=== PATIENT | female | born 1965 | race Caucasian/White ===

== ENCOUNTER 2020-10-11 13:47 | Emergency (ER) | payer OTHER ==
[~2020-10-11] VITALS: Ht 162.6 cm; Wt 104.3 kg
--- NOTE | ~2020-10-11 | EMS ---
[address] [address] EMS Patient Care Report Name: JAVED GERARDO Room #: REG NITISH Garcia#: [id number] Admission: 10/11/20 Attend Phys: Discharge: Date of : 67 Report #: [id number] THIS REPORT FOR: //name// Report Transmitted: 10/11/2020 14:15 EMS Care Summary [facility] MED-ACT Incident [id number] @ 10/11/2020 13:11 Incident Location [address] [place] [id number] Patient JAVED GERARDO Female, 55 Years 1965 Patient Address [address] [place] [id number] Patient History Hypertension (HTN),Hyperlipidemia,Hyperparathyroidism,Cardiomyopathy, Patient Allergies Codeine, Patient Medications Losartan, Levothyroxine, Olanzapine, Hydralazine, Potassium, Pantoprazole, Chief Complaint Cellulitis Disposition Transported No Lights/[place] Dispatch Reason Psychiatric Problem/Abnormal Behavior/Suicide Attempt Transported To [facility] Narrative [id number] dispatched to an assisted living facility for a C3 behavioral. Pt was found seated in a common area with staff and Q33 present. [address] [address] EMS Patient Care Report Name: JAVED GERARDO Room #: REG Ann.#: [id number] Admission: 10/11/20 Attend Phys: Discharge: Date of : 67 Report #: [id number] Staff stated that EMS transport was requested by the pt. They stated that the pt was having a "manic episode" and refusing to take her medication. Pt stated that she has not been taking her medication because it was prescribed by an ER physician and not her PCP. Pt has not been combative or had any suicidal ideations. Staff stated that the pt believes that her potassium is low and is "leaking from her legs" pt has a hx of cellulitis and edema was noted to both lower legs. Pt stated that she feels like the staff at the facility does not have the capability to properly care for her medical problems. This was also given as a reason she has not taken her medication. Pt was alert and oriented x 3 and pleasantly conversational during transport. Pt showed no signs of aggression towards any of the responders. Pt stated that her PCP is in [place] and that she is not from here. she stated that her brother was the one who checked her in to the facility to "relax". Pt was assisted to the cot and transported non emergent to [facility] per her request. Initial Vitals @PTAP: 95,R: 14,BP: 181/131,Pain: 0/10,GCS: 15,SpO2: 97,Revised Trauma: 12, @13:40P: 92,R: 14,BP: 154/92,GCS: 15,SpO2: 99,Revised Trauma: 12, @13:30P: 94,R: 14,BP: 163/87,GCS: 15,Temp: 97.8F,SpO2: 98,Revised Trauma: 12, Assessments @13:36MENTAL:Person Oriented,Time Oriented,Place Oriented,Event Oriented,SKIN:HEENT:Head/Face: No Abnormalities,Neck/Airway: No Abnormalities,LUNG SOUNDS:General: No Abnormalities,ABDOMEN:General: No Abnormalities,PELVIS//GI:No Abnormalities,EXTREMITIES:Left Leg: Edema,Right Leg: Edema,Left Arm: No Abnormalities,Right Arm: No Abnormalities,PULSE:NEURO:No Abnormalities, Impression Cellulitis Procedures @PTASurgical Mask on PatientResponse: Unchanged Timeline 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,Surgical Mask on Patient,Response: Unchanged 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,BP: 181/131 M,PULSE: 95,RR: 14 R,SPO2: 97 Ox,ETCO2: ,BG: ,PAIN: 0,GCS: 15, 13:09,Call Received 13:09,Psap Call 13:11,Dispatched 13:11,En Route 13:19,On Scene 13:23,At Patient 13:27,Depart Scene 13:30,BP: 163/87 M,PULSE: 94,RR: 14 R,SPO2: 98 Ox,ETCO2: ,BG: ,PAIN: ,GCS: 15, 13:40,BP: 154/92 M,PULSE: 92,RR: 14 R,SPO2: 99 Ox,ETCO2: ,BG: ,PAIN: ,GCS: 15, [address] [address] EMS Patient Care Report Name: JAVED GERARDO Room #: REG [facility].#: [id number] Admission: 10/11/20 Attend Phys: Discharge: Date of : 67 Report #: [id number] 13:44,At Destination 14:05,Call Closed Disclaimer v1.1 Copyright 2020 [employer] This EMS Care Summary contains data elements from the applicable legal record (which may be displayed differently). It is designed to provide pertinent information for the following purposes: continuity of care, clinical quality, and state data reporting. The complete legal record is available to ED staff and administrators of the receiving hospital in [employer]'s Patient Tracker. All data is provided "as is."
[~2020-10-11 13:47] MED LIST: KEFLEX500 MG PO; POTASSIUM20 PO; PRINIVIL20 MG PO; SYNTHROID112 MCG PO
[2020-10-11 14:03] LABS: HEMATOCRIT 27.7 % (37.0-47.0); HEMOGLOBIN 9.3 gm/dL (12.0-15.0); MCH 30.5 pg (26.0-34.0); MCHC 33.7 g/dL (28.0-37.0); MCV 90.7 fL (80.0-100.0); PLATELET COUNT 309 thou/uL (150-400); RBC 3.06 mil/uL (4.20-5.00); RDW 20.5 % (10.5-14.5); WBC 11.5 thou/uL (4.0-11.0)
[2020-10-11 14:06] LABS: ANION GAP 10 mmol/L (7-16); BUN 43 mg/dL (7-18); CALCIUM 7.8 mg/dL (8.5-10.1); CHLORIDE 106 mmol/L (98-107); CO2 30 mmol/L (21-32); CREATININE 1.3 mg/dL (0.6-1.0); GLUCOSE 142 mg/dL (74-106); POTASSIUM 3.9 mmol/L (3.5-5.1); SODIUM 146 mmol/L (136-145)
[2020-10-11 14:16] LABS: ALBUMIN 3.1 g/dL (3.4-5.0); SGOT 8 U/L (15-37); SGPT 12 U/L (14-59); TOTAL BILIRUBIN 0.3 mg/dL (0.2-1.0); TOTAL PROTEIN 6.7 g/dL (6.4-8.2); TROPONIN-I <0.06 ng/mL (<0.06)
[2020-10-11] MEDS ORDERED: CARVEDILOL12.5 MG PO (15:27)
[2020-10-11] MEDS ORDERED: VITAMIN B-121000 MC2 PO (15:28)
[2020-10-11] MEDS ORDERED: COZAAR 50 MG TA50 M1 PO (15:28)
[2020-10-11] MEDS ORDERED: DEPAKOTE ER500 M1 PO (15:28)
[2020-10-11] MEDS ORDERED: HYDRALAZINE 2525 MG PO (15:29)
[2020-10-11] MEDS ORDERED: IRON325 M1 PO (15:29)
[2020-10-11] MEDS ORDERED: LASIX 40 MG TAB40 MG PO (15:29)
[2020-10-11 15:30] LABS: URINE BILIRUBIN NEGATIVE (Negative); URINE BLOOD NEGATIVE (Negative); URINE CLARITY CLEAR; URINE COLOR YELLOW; URINE GLUCOSE-RANDOM* NEGATIVE (Negative); URINE KETONES NEGATIVE (Negative); URINE NITRITE-REFLEX NEGATIVE (Negative); URINE PROTEIN (DIPSTICK) NEGATIVE (Negative); URINE SPECIFIC GRAVITY 1.015 (1.005-1.035); URINE UROBILINOGEN 0.2 E.U./dl (0.2-1.0)
[2020-10-11] MEDS ORDERED: MELATONIN3 M1 PO (15:30)
[2020-10-11] MEDS ORDERED: PROTONIX40 M3 PO (15:30)
[2020-10-11] MEDS ORDERED: SPIRONOLACTONE25 MG PO (15:31)
[2020-10-11] MEDS ORDERED: TYLENOL325 MG PO (15:31)
[2020-10-11 15:35] LABS: URINE LEUKOCYTES-REFLEX 1+ (Negative)
[2020-10-11 15:36] LABS: BACTERIA-REFLEX 1-9 Few /HPF (None Seen); CASTS None Seen /LPF (None Seen); CRYSTALS None Seen /LPF (None Seen); SQUAMOUS 0-3 Few /LPF (0-3); URINE RBC None Seen /HPF (NONE SEEN); URINE WBC-REFLEX 6-15 Few /HPF (0-5)
[2020-10-11 15:41] LABS: AMP/METHAMP Negative (Negative); BARBITURATES Negative (Negative); BENZODIAZEPINES Negative (Negative); COCAINE Negative (Negative); METHADONE Negative (Negative); OPIATES Negative (Negative); PCP Negative (Negative)
--- NOTE | 2020-10-11 16:39 | EKG ---
[address] [place] [address] ELECTROCARDIOGRAM REPORT Name: JAVED [facility]ERARDO [id number] Admission: 10/11/20 Attend Phys: Discharge: Date of : 67 Report #: [id number] [facility] ED Test Date: 2020-10-11 Test Time: 14:22:32 Pat Name: JAVED GERARDO Department: Room: Gender: F Senior Market Intelligence Consultant: CLAYTON : 1965 Requested By: Freeman Casillas Order Number: [id number] MD: Alvarado Carmichael Measurements Intervals [place] Rate: 87 P: 39 WI: 141 QRS: 4 QRSD: 88 T: 31 QT: 395 QTc: 476 Interpretive Statements Sinus rhythm Borderline prolonged QT interval No previous ECG available for comparison Electronically Signed On 10-11-2020 16:39:08 CDT by Alvarado Carmichael [email or web address] <ELECTRONICALLY SIGNED> By: Alvarado Carmichael MD, [facility] 10/11/20 1639 1422 1422 Alvarado Carmichael MD, FACC /EPI
[2020-10-11 19:16] VITALS: BP 159/89
== END 2020-10-11 19:19 ==
LOC: ER 13:47
PROVIDERS: Nurse Practitioner
DX: F91.9 Conduct disorder, unspecified (principal); Z90.710 Acquired absence of both cervix and uterus; Z79.899 Other long term (current) drug therapy; Z88.8 Allergy status to other drugs, medicaments and biological substances; Z20.822 Contact with and (suspected) exposure to COVID-19

== ENCOUNTER 2020-10-11 20:13 | Inpatient (IN) | payer OTHER ==
[~2020-10-11] VITALS: Ht 152.4 cm; Wt 109.5 kg
[~2020-10-11 20:13] MED LIST changes: +CARVEDILOL12.5 MG PO; +COZAAR 50 MG TA50 M1 PO; +DEPAKOTE ER500 M1 PO; +HYDRALAZINE 2525 MG PO; +IRON325 M1 PO; +LASIX 40 MG TAB40 MG PO; +MELATONIN3 M1 PO; +PROTONIX40 M3 PO; +SPIRONOLACTONE25 MG PO; +TYLENOL325 MG PO; +VITAMIN B-121000 MC2 PO
[2020-10-11 20:35] VITALS: BP 156/82
--- NOTE | 2020-10-12 02:34 | NUR ---
Arrived on the [facility] floor @ 19:15, accompanied by x2 ED staff from the [facility]. Transferred from stretcher to bed 520B. Report from Leona WHITE in the ED @ 21:05. 55 y.o. Female with allergy to Hydrocodone. Arrived in the ED transported by EMS from [facility]. EMS reports her throwing things at the staff and ems drivers when loading her for transport. DX: Dementia with Behavioral disturbances. Brought to the ED for throwing things at staff in the half-way and at the EMS drivers, DX of bipolar/manic and refusing meds. As per Leona WHITE, the patient will be signing herself in volantarily. She eventually signed herself in, but voiced discontet with the prospects of being a patient in the hospital for anything more than treating the cellulitis on her lower extremities. Reports pain bilat to lower extremities. Denies SI, reports HI toward ex- with whom she completed a final divorce decree in 2019. She justifies this hatred based on erin's greed being a frustration to herself and that is why she would consider bodily harm to him. Uses a walker for ambulation and x1 stand by assist. Denies falls previous to admission. Toilet riser provided for difficulty standing from sitting position. VS 157/89 79 18 97.4 98% weight 239.3 HRRR, Lungs CTA bilat, with some diminished inspiration noted to lower silva. ABD N x 4Q, Reports BM today. No bumps or scars noted to scalp. Under breast pink noted, especially the right. Thighs pink on the medial thigh(s). Above the knee redness noted at about 6" above the knee. Right leg from the knee to ankle is dark red in color with a multitide of pustules noted. the right leg knee to ankle is pink with pustules noted. The right foot has +2 edema and is pink on the top of the feet. The left foot has =2 edema and is pink on the top of the foot. Paatient reports that she would like leg pumps to wear at night, and that they give her relief for 24 hours. Reports she wears compression socks up to the knee. Heels are dry but the skin is intact. Left arm has 2 burgandy color areas and right arm has a burgancy color spot on the skin that the patient calls Spontaneous bruises. Patient reports that she is independent with teeth brushing and skin care. Agreed to allow staff to be on stand by for showering and amabulation. Wears glasses, which she reports she brought with her to the ED, Denies hearing aide or dentures. Reports dental work with an open filling that the dentist started and she needs another appointment to complete. Presents with an angry volatile affect, becomming calmer as the intake continues. Patient denies any history of mental health issues . Denies any current mental health issues, including deny Bipolar. Refused Melatonin 3mg and retired to bed when asked to for the purpose of completing head to toe assessment, then was willing to stay in bed, reports that she will be awake all night, that she slept during the day, and does not require sleep at [facility].
[2020-10-12 04:13] VITALS: BP 156/82
[2020-10-12 09:28] VITALS: BP 162/103
[2020-10-12 09:40] VITALS: BP 162/103
--- NOTE | 2020-10-12 10:28 | NUR ---
ASSUMED CARE AT 0700 THIS MORNING. [facility] SHE IS STATING SHE IS ONLY HER FOR HER CELLULITIS AND DOES NOT NEED TO BE HERE WITH THESE MENTALLY ILL PAIENTS. HER LOWER LEGS ARE EDEMATOUS, REDDENED AND DRY. SHE HAS CELLULITIS AND IS ON A ANTIBIOTIC FOR THIS. SHE IS PUSHY WITH STAFF WANTING STAFF TO GIVE HER FOOD (BEFORE BREAKFAST), CLOTHING, AND WANTS TO KNOW WHEN SHE CAN LEAVE HERE. SHE WAS VERY INQUISITIVE ABOUT THE CELLULITIS WANT TO KNOW WHAT ALL CAN/WILL BE DONE FOR HER HERE. SHE WANTS SCD'S, ANTIBIOTICS, AND BEDREST. SHE DENIES OTHER REASONS FOR BEING HERE. SHE DID SIGN THE CONSENTS. SHE REFUSES TO ALLOW HER FAMILY TO KNOW SHE IS HERE. THE FACILITY CALLED AND WANTED INTORMATION FOR THE PATIENT'S FAMILY. THEY WERE INFORMED THAT THE PT. DOES NOT GIVE PERMISSION FOR INFORMATION TO BE GIVEN TO THE FAMILY. THERE IS NO DPOA PAPERS ON THE CHART. THE FACILTY SHE CAME FROM STATED THEY DO NOT HAVE DPOA PAPERS ON HER. THE FAMILY IS STATING THAT THEY DO. THEY WERE INFORMED TO BRING A COPY TO THE ER AND THE STAFF WILL OBTAIN THE COPY IF INDEED THIS IS CORRECT. NO FURTHER INFORMATION OBTAINED AT THIS WRITING FROM THE FAMILY OR FACILITY. WILL CONTINUE TO MONITOR.
--- NOTE | 2020-10-12 17:23 | NUR ---
RAHAT attempted to reach pt's ex-, Nain Jernigan who is reportedly her DPOA. When RAHAT called, there was no answer and it was not clear that this was in fact Nain' phone so SW did not leave message. Nain' phone number is [phone]. SW team will remain available.
--- NOTE | 2020-10-12 17:32 | NUR ---
SW completed assessment and tx plan. SW team will remain available.
[2020-10-12 19:26] VITALS: BP 169/101
[2020-10-12 20:10] VITALS: BP 169/101
--- NOTE | 2020-10-13 02:27 | NUR ---
PATIENT WAS SLEEPING IN BED WHEN I CAME ON SHIFT AT 1900. SHE AWOKE EASILY AND IS A/0X3-4. SHE DENIES PAIN. SHE HAS CELLULITIS ON BLE'S AND THEY ARE ENLARGED WITH EDEMA X 3 NO WEEPING NOTED. SHE DENIES SI/HI/AVH. SHE AWOKE AND TOOK HER HS MEDS WHOLE WITH WATER. SHE WOKE FROM SLEEP AT AROUND 0115 AND CAME OUT TO THE DINING ROOM AND IS SITTING IN A CHAIR DRINKING WATER. SHE HAS BEEN CALM AND COOPERATIVE. WILL CONTINUE TO MONITOR.
--- NOTE | 2020-10-13 09:44 | NUR ---
Assess due to admit to [facility] for dementia and behavioral disturbances. Class III extreme obesity, heart failure, BLE cellulitis with weeping edema. On diuretics, and also receives B12 and ferrous sulfate supplementation. Eating 100% of meals. Heart healthy diet restriction is appropriate. Low nutrition risk
[2020-10-13 10:18] VITALS: BP 154/86
[2020-10-13 13:28] VITALS: BP 154/86
--- NOTE | 2020-10-13 15:44 | NUR ---
1345 RESUMMED CARE FROM OVERNIGHT SHIFT THIS AM, PATIENT IN DAY ROOM WATCHING TV. PATIENT ATE BREAKFAST AND WAS GIVING ME A HARD TIME ABOUT TAKING HER MEDICATION. DR PARIS HAD A TALK WITH PATIENT AND SHE THEN TOOK HER MEDICATION. PATIENT ALERT ORIENTED TIMES 3 SHE DENIES ANY SI/HI/AH/AH AT PRESENT. PATIENT TRIED TO BECOME A LITTLE HOSTILE WHILE DR PARIS WAS TALKING TO HER ABOUT HER TREATMENT. PATIENT FEELS SHE SHOULD NOT BE HERE PATIENTS ABDOMEN SOFT BOWEL SOUNDS PRESENT. PATIENTS LUNGS CLEAR PATIENT HAS CELLULITIS ON BOTH LOWER EXTREMITIES. PT CAME TO LOOK AT PATIENTS LEGS AND ASKED PATIENT IF SHE HAD COMPRESSION SOCKS OR THE MACHINE THAT HELPS COMPRESS THE LEGS. SHE STATED SHE DOES IT IS NOT MUCH FOR US TO DO PATIENT HAS HAD THIS CONDITION FOR 15 YEARS. WILL CONTINUE TO MONITOR PATIENT FOR SAFETY AND BEHAVIORS.
[2020-10-13 19:48] VITALS: BP 185/98
[2020-10-14] VITALS (7 sets, daily range): BP systolic 155–182; BP diastolic 82–96
--- NOTE | 2020-10-14 04:24 | NUR ---
UPON INITAL ASSESSMENT AT 1945 WAS NOTED TO BE SITTING IN DAYROOM AT TABLE COLORING-SITTING ALONE AWAY FROM PEERS AND STAFF-COMPLIENT WITH TAKING SCHEDULED HS MEDICATIONS AND ALLOWING PHYSICAL ASSESSMENT-DENIES ANY ACUTE PAIN OR ISSUES DURING PHYSICAL ASSESSMENT-REPORTS GOOD APPETITE-RECENT BM 4-25-NO COUCH-FEVER ETC. DOES FOCUS ON CELLULITIS OF LE AND WHEN QUESTIONED REPORTS THAT WHY SHE IS AT HOSPITAL-DENIES HAVING ANY MOOD ISSUES OR NEED FOR CURRENT MH TREATMENT. NOTED TO BECOME AGITATED WHEN TV IN DAYROOM TURNED OFF AT 2200 PER UNIT GUIDELINES AND ASKED TO TRY TO LAY DOWN TO SLEEP IN ROOM STATING "I DONT REALLY SLEEP AT NIGHT-I SLEPT TODAY" ONCE IN ROOM SAT AT SIDE OF BED FOR OVER AN HOUR REFUSES TO CHANGE IN NIGHT CLOTHES OR TURN LIGHTS OFF OR ELEVATE FEET ON BED TO PREVENT INCREASED LE SWELLING-INCREASINGLY ARGUMENTATIVE INSISTING THAT SHE CAN NOT GO TO BED UNTIL LEGS ARE "WRAPPED". THIS RN EXPLAINED THAT IT WAS NOTED THAT PT HAD ADVISED POSSIBLE LYMPHADEMA CONSULT TO FACILITATE LEGS BEING WRAPPED-ALSO EXPLAINED SAFTEY CONCERN WITH WRAPS ON PSYCHIATRIC FLOOR AND WOULD REQUIRE ADDITIONAL CONSIDERATION BY FIRE PREVENTION CAPTAIN AND ADMINISTRATION-REFUSING TO ACCEPT ANY EXPLANATIONS INSISTING THAT WE CALL IST AN AMBULANCE TO TAKE HER TO HOSPITAL-LATER STATING SHE WANTED THE POLICE CALLED-BECAUSE "I AM GOING TO PLACIDO ALL OF YOU FOR MALPRACTICE-I HAVE DONE IT BEFORE"SECURITY TO FLOOR TO SPEAK WITH PT-PROVIDE SUPPORT/REASSURANCE ABLE BUT CONTINUES TO ESCALATE INSISTING THAT HER BROTHER THE [facility] FLOOR INSTALLER AND MEDICAL LAB ASSISTANT BE CALLED TO REPORT "MEDICAL MALPRACTICE" AND STATES THIS NURSE IS "SLANDERING MY NAME BY SAYING I AM ON A PSYCHIATRIC UNIT" YELLING LOUDLY-THREATNING TO STAFF "IF YOU DON'T CALL SOMEONE RIGHT NOW I WILL HIT YOU WITH WHATEVER I CAN FIND" DR PARIS CONTACTED AND ORDERS RECEIVED FOR PO MEDS HOWEVER PT REFUSES ATIVAN 1.5MG GIVEN IM IN LEFT DELTOID ALONG WITH HALDOL 5MG IM. SAT IN DOORWAY OF ROOM INTENSLY STARING AT STAFF FOR APPROX 1 HOUR BEFORE GOING TO BED TO LAY DOWN.WILL CONTINUE TO MONITOR
--- NOTE | 2020-10-14 05:48 | NUR ---
AT APPROX 0500 BED EXIT ALARM SOUNDED-UPON STAFF ENTERING ROOM NOTED TO BE STANDING NEXT TO BED-OBSERVED TO LOOK UP AT STAFF AND FALL BACK ONTO EDGE OF MATTRESS AND SLIDE DOWN TO FLOOR LANDING ON BUTTOCKS. STATES SHE HAD TO "GET TO BATHROOM RIGHT AWAY CAN'T WAIT" WALKER AT SIDE OF BED OBTAINED AND ASSISTED BY STAFF TO BATHROOM-VS OBTAINED-PT DENIES PAIN-ABLE TO MOVE ALL EXTREMETIES WITH NOTED FULL ROM AND DENIES PAIN WITH MOVEMENT. NO NOTED BRUISES,ABRASIONS,REDNESS NOTED ON ASSESSMENT. DR PARIS CONTACTED.NURSING SUPERVISER CONTACTED-MESSAGE LEFT FOR BROTHER ADELA SHORE.
--- NOTE | 2020-10-14 07:17 | NUR ---
NO RETURN CALL RECEIVED FROM ADELA GERARDO WHO IS EX-SPOUSE AT [phone]-PAPERWORK SENT FROM [facility] LIST EMERGENCY CONTACT-PT ASKED TO CLARIFY IF HAD DPOA OR WHICH FAMILY MEMBER WAS HER CONTACT TO WHICH SHE STATES "I MAKE MY OWN DECISIONS-YOU DON'T HAVE MY PERMISSION TO CALL ANYONE I WILL PLACIDO YOU"
[2020-10-14 07:54] LABS: CALCIUM 8.2 mg/dL (8.5-10.1); CREATININE 1.3 mg/dL (0.6-1.0); POTASSIUM 4.1 mmol/L (3.5-5.1)
--- NOTE | 2020-10-14 12:27 | NUR ---
Alert and orientated to person, place but not to day or situation. States she is here d/t cellulitis. Denies SI/HI. Calm, cooperative and compliant, appreciative of assistance. Breath sounds clear. Reg HR auscultated. Color pink with brisk capillary refill and palpable peripheral pulses. Significant edema with multiple papules in lower extremities. Spoke with Dr. Serna, consulting with PT for assistance with edema. Incontinent of yellow urine and large green brown soft stool, required assistance with cleaning up. Ambulating with walker with regular, steady gait. Spent AM in day room participating in groups and coloring. No s/o distress.
--- NOTE | 2020-10-14 16:37 | NUR ---
@7310 RAHAT recieved a PC call from Heather Mason [phone], Pt's sister. Heather informed the Pt called her mother stating she was being discharged today. Heather expressed concern the Pt could leave AMA. RAHAT provided education on DPOA enactment vs 96 hr hold. RAHAT explained that Pt was not discharging today and if Pt insisited on leaving the DPOA would be contacted concerning the matter. RAHAT provided eduction on placement process. Heather stated [facility] would not accept the Pt back due to behaviors. So the Pt will need a new placement. RAHAT encouraged Heather to go to the medicare website to get a listing of facilities and provide SW with a few they family is intrested in. RAHAT will continue to follow RAHAT will continue to follow.
[2020-10-15 00:20] VITALS: BP 161/91
--- NOTE | 2020-10-15 00:26 | NUR ---
Assumed care on 10/14/20 @ 1900, in bed eyes closed, awakens to voice, cooperated with assessment, however very sleepy. Dressings on legs C/D/I. HRRR, Respirations shallow but even and unlabored. Compliant with medication administration, taking meds whole with thin water. Will continue to monitor for safety and comfort as per unit protocol.
[2020-10-15 13:15] VITALS: BP 162/108
--- NOTE | 2020-10-15 15:34 | NUR ---
PATIENT HAS BEEN UP, AND OUT ON THE UNIT, AMBULATE WITH ASSIST OF ROLLER WALKER, GAIT SLIGHTLY UNSTEADY. PATIENT TOOK ALL MEDICATION WHOLE WITHOUT DIFFICULTY, SHE IS EATING MEALS, AND DRINKING FLUID WELL. PATIENT DENIES SUICIDAL/HOMICIDAL IDEATION, SHE DENIES DEPRESSION/ANXIETY, SHE DENIES HAVING PHYSICAL PAIN. WRAP IN PLACE TO SAVANNA LOWER EXTREMITY. PATIENT IS CONTINENT OF BOWEL/BLADDER, HAD SOFT MEDIUM BOWEL MOVEMENT TODAY. AFFECT IS FLAT/BLUNTED, MOOD IS DEPRESSED. PATIENT PARTICIPATING IN GROUP THERAPY. NO SIGN OF ACUTE DISTRESS NOTED AT THIS TIME, WILL MONITOR FOR SAFETY.
[2020-10-15 18:53] VITALS: BP 181/98
--- NOTE | 2020-10-16 02:31 | NUR ---
PT CARE ASSUMED WITH PT IN THE ACTIVITY ROOM WATCHING TV.PT IS AMBULATE WITH WALKER.WRAP ON BLE IN PLACE.PT TAKE MEDICATION WHOLE WITH NO DIFFICULTIES.PT CONFUSE AND FORGETFUL.PT ASKED FOR MEDICATIONS AFTER SHE HAD TAKEN THEM EARLIER.PT WAS ASSISTED TO THE BATHROOM AND WAS ASSIST TO BED AT ABOUT 01:00.PT GIVEN TYLENOL FOR PAIN ON SAVANNA LE.WILL CONTINUE TO MONITOR
[2020-10-16 07:15] VITALS: BP 188/111
--- NOTE | 2020-10-16 12:00 | NUR ---
Alert and orientated X 4. Talking about divorce and finances r/t exhusband this AM. Calm, cooperative and compliant. Denies SI/HI. Ambulates with walker with regular, steady gait. Breath sounds clear. Reg HR auscultated. Color pink with brisk capillary refill and palpable peripheral pulses. +4 pitting edema in lower extremities with multiple palpules, tubigrips in place. Continent of yellow urine. Active bowel sounds over large, soft, rounded abdomen. Incontinent of brown formed stool. Currently sitting at table eating lunch with peers. No s/o distress.
[2020-10-16 16:00] VITALS: BP 170/102
[2020-10-16 16:50] VITALS: BP 173/85
--- NOTE | 2020-10-16 17:57 | NUR ---
Lymphadema therapist called and stated that she will redress cellulitis in AM.
[2020-10-16 19:34] VITALS: BP 187/100
[2020-10-16 23:00] VITALS: BP 160/90
--- NOTE | 2020-10-17 05:17 | NUR ---
SITTING IN DAYROOM COLORING ON INITIAL APPROACH THIS PM AT APPROX 2000-DYSPHORIC MOOD AND CONTINUES TO STATE SHE HOPE SHE GETS TO LEAVE SOON SHE "DOES NOT BELOMG HERE" TYLENOL 650MG GIVEN PO PRN PER REQUEST AT 2100 ALONG WITH SCHEDULED HS MEDS FOR LE PAIN RATED A 6 ON 1-10 SCALE-DID AMBULATE TO ROOM AND LAYED DOWN ON BED FOR 1-2 HOURS BEFORE GETTING BACK UP REQUESTING WOUND CARE TO COME AND PUT ON HER "WRAPS" SHE FEELS SWELLING IS "GETTING WORSE-I CALLED MY SISTER IN- LAW TO LET HER KNOW" LE ASSESSED AND APPEAR DISCOLORED REDDISH/PURPLE-HARD TENSE NON-PITTING EDEMA TO FEET ANKLES AND LOWER CALVES BILAT.-IS NOT WARM TO TOUCH-EDEMA APPEARS UNCHANGED FROM ON PREVIOUS SHIFTS. TUBIGRIP OBTAINED FROM REHAB UNIT AND PLACED TO LE-PT APPRECIATIVE OF THIS AND HAS BEEN SITTING IN DAYRROM SINCE APPROX 0245 COLORING AND "MAKING LISTS" STATES "I NEVER SLEEP MORE THAN AN HOUR OR TWO AT NIGHT" REMAINS ON [place] RISK-USING ROLLER WALKER -COOPERATIVE WITH STAND BY SUPERVISION OF STAFF WHEN UP.
[2020-10-17 05:21] LABS: HEMATOCRIT 29.4 % (37.0-47.0); HEMOGLOBIN 9.3 gm/dL (12.0-15.0); MCH 28.6 pg (26.0-34.0); MCHC 31.7 g/dL (28.0-37.0); MCV 90.1 fL (80.0-100.0); RBC 3.26 mil/uL (4.20-5.00); RDW 20.8 % (10.5-14.5); WBC 11.7 thou/uL (4.0-11.0)
[2020-10-17 05:49] LABS: CREATININE 1.5 mg/dL (0.6-1.0); MAGNESIUM 2.6 mg/dL (1.8-2.4); POTASSIUM 4.1 mmol/L (3.5-5.1)
--- NOTE | 2020-10-17 08:09 | NUR ---
RT Progress Note- During Blanche's first week of admission, she has provided inconsistent participation in recreation therapy groups. Blanche remains present in the milieu throughout each day and often sits at dining table working on various tasks such as writing notes to her family or coloring in monthly calendars that she requests be printed for her. When not present in group it is often because she believes she needs to meet with a doctor or other member of the medical team, or needs to continue working on her paper projects. When present, Blanche is pleasant and enjoys interacting with other pts. She has not displayed agitation or aggression, but does require some reorientation occasionally. MOTOR ANALYST will continue to encourage participation.
--- NOTE | 2020-10-17 10:21 | NUR ---
TUBIGRIP IS TO STAY ON Pt EXCEPT WHILE BATHING. ONCE BATH IS OVER THAN PLEASE PUT THE TUBIGRIP BACK ON HER LEGS. THE WIDER PIECE GOES OVER THE CALF AND THE SMALLER ON GOES OVER THE FEET DOUBLE. THANK YOU FOR YOU ASSISTANCE
--- NOTE | 2020-10-17 12:08 | NUR ---
Nusrat with [facility] said that she can accept pt and wanted SW to email her a referral for pt. SW emailed a referral to [email or web address] a referral for pt. SW team will continue to follow pt during her stay on this unit.
--- NOTE | 2020-10-17 16:52 | NUR ---
PT ASSESSED AT START OF SHIFT. HAS BEEN CALM AND COOPERATIVE THROUGHOUT THE DAY. DID NOT SLEEP MUCH DURING THE NOC AND AFTER LUNCH COULD NOT STAY AWAKE SO SHE AGREEN TO LIE DOWN AND NAP FOR AN HOUR. BP MUCH IMPROVED.
[2020-10-17 19:28] VITALS: BP 156/80
--- NOTE | 2020-10-18 04:14 | NUR ---
PT WALKS AROUND USING WALKER. CONVERSATIONAL AND RESPECTFUL THRO THE SHIFT. TUBIGRIPS TO BLE.PT TOOK ALL HS NEDS WITHOUT ANY PROBLEMS. PT SLEPT UPTO AROUND 0300, SHE THEN WOKE UP AND IS NOW SLEEPING IN CHAIR AT THE DAY AREA.DRESSSINGS INTACT TO [facility].
[2020-10-18 09:15] VITALS: BP 157/90
--- NOTE | 2020-10-18 10:15 | NUR ---
Alert and orientated X4. Calm, cooperative and compliant, asking appropriate questions, has list of requests for toiletary items, provided. States pain in lower legs improved after tylenol. Denies SI/HI. Breath sounds clear. Reg HR auscultated. Color pale pink with brisk capillary refill and palpable peripheral pulses. Significant edema in lower extremities with tubi roll builder in place. Independent with voiding, yellow urine per toilet, dried stool around anus, assisted with cleaning. Slight redness under breasts, cleaned and nystatin cream applied. Multiple papules on lower extremities. Ambulating with regular, steady gait with walker. Currently attending group, no s/o distress.
[2020-10-18 19:54] VITALS: BP 155/86
--- NOTE | 2020-10-19 04:23 | NUR ---
10-18-20 CARE TRANSFERRED 1914 OBSERVED PT WALKING IN HALLWAY. LATER PT AAOX4, VSS, RR EVEN AND NONLABORED ON RA. PT REPORTS PAIN IN LE SAVANNA +2 EDEMA. PT DENIES SI/HI. PT PRESENTS PLEASANT, CALM AND COOPERATIVE THROUGHOUT NURSING ASSESMENT. DURING MEDICATION ADMIN PT HAD NO DIFFICULTIES. LATER ADJUSTED PT BED FOR COMFORT. ZERO S/S OF ACUTE DISTRESS NOTED, PT WILL CONTINUE TO BE MONITOR PER [facility] PROTOCOL.
[2020-10-19 04:53] LABS: HEMATOCRIT 28.6 % (37.0-47.0); HEMOGLOBIN 9.5 gm/dL (12.0-15.0); MCH 29.6 pg (26.0-34.0); MCHC 33.1 g/dL (28.0-37.0); MCV 89.5 fL (80.0-100.0); RBC 3.2 mil/uL (4.20-5.00); RDW 20.3 % (10.5-14.5); WBC 14.2 thou/uL (4.0-11.0)
[2020-10-19 04:56] LABS: CALCIUM 8.1 mg/dL (8.5-10.1); CREATININE 1.6 mg/dL (0.6-1.0); MAGNESIUM 2.6 mg/dL (1.8-2.4); POTASSIUM 3.5 mmol/L (3.5-5.1)
[2020-10-19 08:30] VITALS: BP 158/73
--- NOTE | 2020-10-19 08:45 | NUR ---
PT SITTING OUT IN DINING ROOM WITH OTHER PEERS. PT BEING SOCIAL. PT WORRIED ABOUT HER LE SWELLING SAYING THEY ARE BAD. PT HAS TUBEX SOCKS ON BILATERALY. PT STATED SHE HAS SOME PAIN TO LE OF 7 ON 1-10 SCALE. PT COMPLIENT WITH MEDS.
[2020-10-19 09:55] VITALS: BP 158/73
--- NOTE | 2020-10-19 10:39 | NUR ---
DR. WEST SEEN PT AND STATED THAT SHE DIDN'T HAVE CELLULITIS, BUT LYMPHEDEMA. HE EXPLAINED THAT HER KIDNEYS WAS NOT FUNCTIONING WELL AND SOME DIURETICS WAS ON HOLD. SHE DENIES ANY SOB. PT USES WALKER WHEN AMBULATING. PT ALSO HAS EDEMA IN LOWER EXT.
--- NOTE | 2020-10-19 14:33 | NUR ---
PT STATED HER LEGS ARE HURTING AND WANTING TO LAY DOWN. ADM TYLENOL 325MG 2 TABS PO PAIN TO LOWER LEGS OF 7 ON 1-10 SCALE. PT WENT TO BED AND LAID DOWN, FEET OF BED WAS ELEVATED FOR THE EDEMA.
[2020-10-19 15:16] VITALS: BP 141/84
--- NOTE | 2020-10-19 18:17 | NUR ---
PT WAS GOING TO BATHROOM. PT HAS AREA TO LEFT THIGH THAT IS DRAINING PURULENT DRAINAGE WITHOUT AN ODOR. OBTAINED A CULTURE OF WOUND THE WOUND AND A PIC FOR THE CHART. PT STATED IT WAS A BOIL THAT OPENED. NOTICE A REDDNESS AREA AROUND OPEN AREA. WILL CALL FOR CULTURE ORDER.
--- NOTE | 2020-10-19 18:47 | NUR ---
CALLED WOUND CARE CONSULT PER DR. WEST, ALSO ORDER FOR CULTURE AND STARTED A ABX.
[2020-10-19 19:20] VITALS: BP 144/68
--- NOTE | 2020-10-20 02:48 | NUR ---
ASSUMED CARE OF PT AT SHIFT CHANGE. PT IS AOX3-4 AND LETS NEEDS BE KNOWN. FALL PRECAUTION IN PLACE. PT IS UP WITH A WALKER. LYMPHEDEMA WRAPS IN PLACE. LEFT THIGH LESION DRESSING IS C/D/I. PT REPORTS SOME BLE PAIN. PT DENIED NAUSEA, SOA, SI OR HI. ASSESSMENT CHARTED. PT WAS ABLE TO GET COMFORTABLE AND SLEEP ONLY PART OF THE SHIFT. PT TOOK ALL HS MEDS WHOLE WITH WATER. VSS AND NO S/S OF ACUTE DISTRESS. WILL CONTINUE TO MONITOR.
[2020-10-20 09:14] VITALS: BP 152/83
--- NOTE | 2020-10-20 10:35 | NUR ---
Nutrition followup: Pt continues on [facility] unit, sleeping during visit. Spoke with nsg. Pt eating well, 75-100% of meals. No new weight however BMI class 3, extreme obesity. Heart healthy diet, Bilateral LE lymphedema on diuretics. Continues on B12 and ferrous sulfate supplementation. Remains low risk.
[2020-10-20 12:45] VITALS: BP 152/83
--- NOTE | 2020-10-20 12:54 | NUR ---
ASSUMED CARE AT 0700 THIS MORNING. SHE IS COOPERATIVE WITH THE STAFF. SHE TOOK HER MORNING MEDICATIONS WITHOUT PROBLEMS NOTED. SHE IS EATING WELL. SHE OFTEN ASKS FOR EXTRA FOOD AND ICE CREAM. STAFF DENIED THIS TO HER. SHE STATED, "DO I HAVE TO TALK TO THE DR?" SHE WAS INFORMED SHE WOULD. SHE ENDED THE CONVERSATION WITH THAT. WOUND TEAM HERE TO SEE PT. SHE HAS A WOUND ON THE FRONT MID THIGH TO LEFT LEG. THEY DRESSED THE WOUND. SHE ALSO HAS AN AREA TO HER REAR RIGHT LOWER LEG THAT THEY REDRESSED. THEY ENTERED ORDERS ON THIS. THE WOUND CARE TEAM REMOVED THE LYMPHADEMA WRAPS TO HER LOWER LEGS BILATERALLY. THEY WERE VERY TIGHT ON HER LEGS. THE TEAM STATED THEY HAD LARGER ONES THEY WOULD BRING BACK TO PUT ON HER LEGS LATER. WILL CONTINUE TO MONITOR.
[2020-10-20 20:03] VITALS: BP 164/85
--- NOTE | 2020-10-21 01:21 | NUR ---
SITTING IN DAYROOM VISITING WITH PEERS ON INITIAL ASSESSMENT THIS PM. STATES DAY WAS "GOOD" AND DESCRIBES MOOD "NOT BAD" FULL RANGE AFFECT-DENIES ACUTE ANXIETY,SI,SH,HI.COMPLIENT WITH TAKING SCHEDULED MEDICATIONS AND DENIES NEED FOR PRN'S. LUNGS CLEAR. BS ACTIVE AND REPORTS BM TODAY. DOES REPORT BEING UPSET THAT WRAPS FOR LE WERE REMOVED BY WOUND CARE EARLIER THIS SHIFT STATING "I HAD TO WAIT FOREVER TO GET THOSE AND THEY WERE JUST STARTING TO HELP. DOES STATE THAT TUBIGRIPS HELP WITH DISCOMFORT AND DECREASE HER PAININ LE. DID GO TO ROOM AND ATTEMPTED TO SLEEP ON BED WHEN ASKED ABOUT 2230 BUT UP OUT OF ROOM AT 2330 STATING "JUST CAN'T GET COMFORTABLE IN BED-I WOULD RATHER BE OUT HERE ' DID AGREE TO SIT IN GERICHAIR SO THAT LEGS COULD BE ELEVATED.WILL CONTINUE TO MONITOR.
[2020-10-21 05:16] LABS: HEMATOCRIT 27.4 % (37.0-47.0); HEMOGLOBIN 8.8 gm/dL (12.0-15.0); MCH 29.5 pg (26.0-34.0); MCHC 32.2 g/dL (28.0-37.0); MCV 91.9 fL (80.0-100.0); RBC 2.99 mil/uL (4.20-5.00); RDW 20.2 % (10.5-14.5); WBC 12.6 thou/uL (4.0-11.0)
[2020-10-21 05:36] LABS: CALCIUM 7.8 mg/dL (8.5-10.1); CREATININE 1.3 mg/dL (0.6-1.0); MAGNESIUM 2.6 mg/dL (1.8-2.4)
[2020-10-21 08:59] VITALS: BP 183/90
--- NOTE | 2020-10-21 11:34 | NUR ---
Alert and orientated X4. Goal is to be discharged. Calm, cooperative and compliant. Denies SI/HI. Breath sounds clear. Reg HR auscultated. Color pale pink with brisk capillary refill and palpable peripheral pulses. Edema increased significantly since 3 days ago. Independent with voiding. Dark green stool this AM, requiring assistance with wiping. Active bowel sounds over large, rounded abdomen. Lower extremities with multiple papules and erythema as well as edema. Abcess per R thigh with serosanguious drainage, cleaned with NS and dressed with gentamycin and foam drsg. 3 additional papules draining with scant amt serous drainage, cleaned with NS and dressed with border foam. [facility] PT and wound nurse here dressing lower legs and placing tubigrips. Cipro and KCL given per order.
[2020-10-21 17:00] VITALS: BP 168/98
--- NOTE | 2020-10-21 17:44 | NUR ---
RAHAT and Dr. Gomes participated in a phone call with Nain. Nain informed he has obtained temporary guardianship of the Pt. There are also two co-guardians. Nain stated he would email a copy of the orders to Dr. Gomes. RAHAT asked that communication be with one of the co-guardians moving forward, Nain was olay with this and provided the phone number to Lavelle Kilgore, co-guardian, . RAHAT also informed that Pt was ready d/c and Pt has an assessment with Cori Claros today at 1415. Nain was aware of the assessment time. A family meeting was set for 09/22/2020 @ 0900. RAHAT will continue to follow.
--- NOTE | 2020-10-21 17:52 | NUR ---
Pt completed an video assessment with Jenise Gaitan informed they will accept the Pt. Pt could move in as early as 10/23/2020
[2020-10-21 19:03] VITALS: BP 171/78
[2020-10-21 19:45] LABS: % SATURATION 17 % (20-39); IRON 43 ug/dL (50-170); TIBC 246 ug/dL (250-450)
[2020-10-21 20:01] LABS: FOLIC ACID 16.8 ng/mL (8.6-58.9)
--- NOTE | 2020-10-22 05:17 | NUR ---
10-21-20 CARE TRANSFERRED 0 OBSERVED PT SITTING IN DAY ROOM AT TABLE COLORING. LATER PT AAOX4, VSS, RR EVEN AND NONLABORED ON RA. PT DENIES PAIN AND SI/HI. PT PLEASANT, CALM AND COOPERATIVE. PT SAVANNA LE PITTING EDEMA +4. DURING MEDICATION ADMIN, PT REPORTED FEELING ANXIOUS THIS EVENING OVER LEAVING GOING TO ASSISTED LIVING. LATER PT REPORTED THAT HER DRESSING HAD FALLEN OFF, WOUND CARE WAS PROVIED PER HCP ORDERS, AND PT BED WAS ADJUSTED FOR COMFORT. ZERO S/S OF ACUTE DISTRESS NOTED, PT WILL CONTINUE TO BE MONITOR PER [facility] PROTOCOL.
[2020-10-22 08:00] VITALS: BP 179/89
[2020-10-22 10:05] VITALS: BP 159/95
--- NOTE | 2020-10-22 10:36 | HC ---
[facility] [place] [address] CONSULTATION Name: JAVED GERARDO Room #: 520B-B ADM IN M.R.#: [id number] Admission: 10/11/20 Attend Phys: Ej Serna DO Discharge: Date of : 67 Report #: [id number] THIS REPORT FOR: cc: Aden Gutiérrez MD, Christopher B. MD Althoff, Jeffrey R. MD ~ DOC #: [id number] Elmer Schreiber MD DATE OF SERVICE: 10/20/2020 CHIEF COMPLAINT: Abscess to the left thigh. HISTORY OF PRESENT ILLNESS: This is a 55-year-old female patient who presented to the Emergency Department for cellulitis. She was apparently having some aggressive behaviors and has been admitted to the Geriatric Psych Unit. I have been asked to see her with regard to an abscess on her left thigh that she states just began one to two days ago. She also noted some small ulcers to her right lateral ankle. PAST MEDICAL HISTORY: History of hypothyroidism, previous hysterectomy, diverticulitis, and history of recurring cellulitis. FAMILY HISTORY: Positive for depression in her mother. SOCIAL HISTORY: Positive for alcohol use, no tobacco use, or drug use. CURRENT MEDICATIONS: Include Keflex, potassium chloride, carvedilol, losartan, vitamin B12, Depakote, iron, hydralazine, Lasix, melatonin, pantoprazole, spironolactone, and Synthroid. ALLERGIES: HYDROCODONE. REVIEW OF SYSTEMS: CONSTITUTIONAL: The patient denies fever, chills or weight loss. NEUROLOGICAL: The patient denies focal weakness, numbness, tingling. EYES: The patient denies visual changes, redness, drainage. ENT: The patient denies earache, nasal drainage, or sore throat. CARDIOVASCULAR: The patient denies chest pain, palpitations, diaphoresis. PULMONARY: The patient denies cough or shortness of breath. GASTROINTESTINAL: Denies nausea, vomiting, diarrhea or abdominal pain. ORTHOPEDIC: The patient complains of pain and swelling involving her left anterior thigh. Other systems on A 14-point review of systems are negative. PHYSICAL EXAMINATION: [address] [address] CONSULTATION Name: JAVED GERARDO Room #: 520B-B [facility] IN [facility].#: [id number] Admission: 10/11/20 Attend Phys: Ej Serna DO Discharge: Date of : 67 Report #: [id number] VITAL SIGNS: The patient's vital signs at this time include temperature 36.3, pulse rate 70, respiratory rate 18, blood pressure 152/83. GENERAL: This is a chronically ill-appearing female patient who appears to be in no distress. HEAD: Normocephalic. Nose and throat are clear. NECK: Supple. LUNGS: Clear. ABDOMEN: Soft. Bowel sounds present. EXTREMITIES: Examination of the lower extremities demonstrates a small abscess or boil to the anterior left thigh. It is partially draining. The area has been prepped with Betadine and using a cotton tip applicator, unroofed with some purulent drainage, which the patient tolerated well and no additional fluctuance was noted. The patient's lower extremities demonstrate palpable distal pulses. She does have a few small venous ulcers to her right lateral lower leg and ankle region. NEUROLOGIC: The patient is alert and oriented. LABORATORY DATA: White blood cell count 14.2 with a hemoglobin of 9.5, hematocrit of 28.6. Sodium 147, potassium 3.5, chloride 107, CO2 of 30, BUN 54, creatinine 1.6. CLINICAL IMPRESSION: 1. A small abscess/boil to the left anterior thigh that is currently now draining. 2. Venous ulcers to the right lateral lower leg. 3. Frontotemporal dementia with behavioral issues. 4. Hypothyroidism. 5. History of pituitary microadenoma. 6. History of chronic diastolic heart failure. 7. Acute kidney injury on chronic kidney disease. 8. Hypertension. RECOMMENDATIONS: At this point in time, we will recommend gentamicin and bordered foam to the left anterior thigh area to be changed daily. Recommend a bordered foam to the open ulcers of the right ankle and Tubigrip stockings to both lower extremities, elevation of the legs as much as possible. I greatly appreciate being asked to see her in consultation. Elmer Schreiber MD [facility]/[address] [address] CONSULTATION Name: JAVED GERARDO Room #: 520B-B ADM IN M.R.#: [id number] Admission: 10/11/20 Attend Phys: Ej Serna, DO Discharge: Date of : 67 Report #: [id number] <ELECTRONICALLY SIGNED> By: Elmer Schreiber MD 10/22/20 1036 1611 0154 Elmer Schreiber MD /nt
--- NOTE | 2020-10-22 12:33 | NUR ---
PATIENT WAS IN BED ASLEEP WHEN CARE ASSUMED, AWAKEN FOR BREAKFAST. AMBULATE WITH ASSIST OF ROLLER WALKER, GAIT SLIGHTLY UNSTEADY. DRESSING CHANGED TO LEFT THIGH BOIL, CREAM APPLIED TO BLE. PATIENT TOOK ALL MEDICATION WHOLE WITHOUT DIFFICULTY, SHE IS EATING MEALS, AND DRINKING FLUID WELL. PATIENT DENIES SUICIDAL/HOMICIDAL IDEATION, SHE DENIES DEPRESSION/ANXIETY "AM A HAPPY PERSON". MOOD IS EUTHYMIC, AFFECT IS BRIGHT. PATIENT DENIES HAVING PHYSICAL PAIN. NO SIGN OF ACUTE DISTRESS NOTED AT THIS TIME, WILL MONITOR FOR SAFETY.
--- NOTE | 2020-10-22 14:56 | NUR ---
RAHAT and Dr. Gomes had a meeting with Lavelle Gillette, and Heather concerning nueropsy evaluation, diagnosis, and treatment. Dr. Gomes provided education on frontotemporal dementia. Pt has been accepted at [facility]. Pt will benefit from continued psychiatry. RAHAT will follow up if [facility] has a psychiatrist that rounds. Pt will d/c 10/23/2020 @1500. Pt will be transported via express transportation, confirmation #[id number]
[2020-10-22 19:03] VITALS: BP 135/80
--- NOTE | 2020-10-23 04:24 | NUR ---
10-22-20 CARE TRANSFERRED 1914 OBSERVED PT RESTING IN BED WITH EYES CLOSED AND FEET ELEVATED. LATER PT AAOX4, VSS, RR EVEN AND NONLABORED ON RA. PT DENIES SI/HI AND PAIN. PT DRESSING CLEAN, DRY AND INTACT. SAVANNA LE +4 EDEMA. PT PRESENTS PLEASANT, CALM AND COOPERATIVE. LATER OBSERVED PT WALKING IN HALLWAY WITH WALKER AND PT REPORTED THAT HER FEET AND LEGS ARE FEELING BETTER. LATER ASSISTED PT WITH ADJUSTMENT OF BED AND FEET ELEVATED. ZERO S/S OF ACUTE DISTRESS NOTED, PT WILL CONTINUE TO BE MONITOR PER [facility] PROTOCOL.
[2020-10-23 05:55] LABS: HEMOGLOBIN 8.5 gm/dL (12.0-15.0); MCH 29.1 pg (26.0-34.0); MCHC 31.6 g/dL (28.0-37.0); MCV 92.2 fL (80.0-100.0); RBC 2.93 mil/uL (4.20-5.00); RDW 20.9 % (10.5-14.5); WBC 11.7 thou/uL (4.0-11.0)
[2020-10-23 06:14] LABS: CALCIUM 7.6 mg/dL (8.5-10.1); CREATININE 1.3 mg/dL (0.6-1.0); POTASSIUM 3.4 mmol/L (3.5-5.1)
[2020-10-23 07:26] VITALS: BP 165/99
[2020-10-23 09:35] VITALS: BP 165/99
[2020-10-23] MEDS ORDERED: CIPROFLOXACIN500 M1 PO (12:27)
[2020-10-23] MEDS ORDERED: IRON325 PO (12:28)
[2020-10-23] MEDS ORDERED: CARVEDILOL12.5 MG PO (12:29)
[2020-10-23] MEDS ORDERED: HYDRALAZINE 5050 MG PO (12:29)
[2020-10-23] MEDS ORDERED: COZAAR 50 MG TA50 M1 PO (12:30)
[2020-10-23] MEDS ORDERED: SPIRONOLACTONE25 M1 PO (12:31)
[2020-10-23] MEDS ORDERED: DEPAKOTE500 MG PO (12:31)
[2020-10-23] MEDS ORDERED: TRAZODONE HCL50 MG PO (12:32)
[2020-10-23] MEDS ORDERED: ZYPREXA 5 MG TAB5 M1 PO (12:32)
[2020-10-23] MEDS ORDERED: OLANZAPINE2.5 MG PO (12:32)
[2020-10-23] MEDS ORDERED: LASIX 40 MG TAB40 M1 PO (12:33)
[2020-10-23] MEDS ORDERED: PROTONIX 20 MG20 M1 PO (12:33)
[2020-10-23] MEDS ORDERED: GENTAMICIN SULF15 GM TOP (12:34)
[2020-10-23] MEDS ORDERED: TIROSINT75 MCG PO (12:34)
[2020-10-23] MEDS ORDERED: B-12500 MCG PO (12:35)
[2020-10-23] MEDS ORDERED: MELATONIN3 MG PO (12:36)
--- NOTE | 2020-10-23 12:43 | NUR ---
Pt has been accepted by [facility] for PT/OT eval/treat and lymphedema therapy. Jm was faxed to [facility] in admissions [phone], fax [phone].
--- NOTE | 2020-10-23 12:48 | NUR ---
RAHAT spoke with SONIA Burden at [facility], concerning psychiatric follow up for appointment. Jenise stated that she did not get the name of the psychiatist that would be rounding. However stated she would be sure to get Pt a follow up visit with the psychiatrist in the up coming weeks.
--- NOTE | 2020-10-23 13:09 | NUR ---
Discharge document, covid test results and chest xray were emailed to Cori rawls staffing director Tiarra Hernandez and SONIA @ [email or web address]
--- NOTE | 2020-10-23 17:47 | NUR ---
Assumed pt care at 0700. alert and oriented x4. calm and co-operative with care. Assessments completed, vss. pt took meds whole, no difficulty noted. no sign of acute distress noted upon assessments. Denies si/hi. no c/o pain. meds administered as ordered. At 1419 derek Branchson was given D/C instruction. At 1530 PT WAS D/C TO [facility], WITH D/C INSTRUTION, D/C SUMMARY,LABS, AND PT BELONGINGS. Pt was transport by [employer]. financial writer accompanied pt to exit. Report was called to wojciech at [facility] at 1750.
--- NOTE | 2020-10-24 17:19 | D ---
[facility] [place] [address] DISCHARGE SUMMARY Name: JAVED GERARDO Room #: 520B-B DIS IN M.R.#: [id number] Admission: 10/11/20 Attend Phys: Romario Serna DO Discharge: 10/23/20 Date of : 67 Report #: [id number] THIS REPORT FOR: cc: Aden Gutiérrez MD, Christopher B. MD Kerstein, Andrew H. DO ~ DOC #: [id number] ROMARIO Serna DO DATE OF SERVICE: 10/23/2020 INPATIENT PSYCHIATRIC DISCHARGE SUMMARY ATTENDING PSYCHIATRIST: Romario Serna DO MEDICAL CONSULT: Micah Marina MD ADDITIONAL HOME THEATER SPECIALIST: Dr. Elmer Schreiber of Wound Care; Rinku Alvarez of Neuropsychology. 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 MEDICAL COMORBIDITIES: Bilateral lower extremity lymphedema using wraps to keep in the hospital, keep legs elevated, hypokalemia due to Lasix and insufficient dietary intake, hypothyroidism on replacement, pituitary microadenoma. She has had an MRI of the brain pituitary scheduled this in 01/2021 at [facility]. She has chronic diastolic heart failure, small doses of diuretics. The patient is believe managed by her primary care for that, but that will need to be followed at nursing facility. She has acute on chronic kidney disease. Her creatinine was down to 1.3. Lasix was restarted. Anemia of chronic disease, she is on iron supplementation. B12 within normal limits. Hypertension, on multiple meds, that needs to be monitored daily. Recommending BMP and CBC with diff in 1 week at nursing facility. Cultures as stated pseudomonas, enterococcus on the wound. The patient is discharging to [facility]. Psychiatric and medical care to be provided by the receiving facility. DISCHARGE MEDICATIONS: As follows: Ciprofloxacin 500 mg oral twice a day for pseudomonas, boil skin infection, 15 more doses. Ferrous sulfate 325 mg oral twice daily for iron deficiency and anemia, hydralazine 75 mg oral 3 times a day for hypertension. Her blood pressure should be checked each day, I would hold if less than 100 mmHg systolic. Carvedilol 12.5 mg oral twice daily with meals for hypertension, again hold if less than 100 systolic. Losartan 50 mg oral daily for hypertension and renal protection. Spironolactone 25 mg oral twice daily at 0900 hours and 1700 hours for potassium depletion due to furosemide use. Depakote sodium DR 500 mg oral twice daily for mood [address] [address] DISCHARGE SUMMARY Name: JAVED GERARDO Room #: 520B-B [facility] IN M.R.#: [id number] Admission: 10/11/20 Attend Phys: Romario Serna DO Discharge: 10/23/20 Date of : 67 Report #: [id number] stabilization, trazodone 50 mg oral at bedtime for sleep, olanzapine 2.5 mg oral at 0900 hours and 5 mg oral at bedtime for psychosis, Lasix 40 mg oral daily for lymphedema, omeprazole 40 mg oral daily for GERD, levothyroxine 150 mcg oral daily for hypothyroidism due to thyroidectomy, gentamicin sulfate topical applied to ruptured boil for another 14 days, cyanocobalamin 1000 mcg oral daily for supplementation, melatonin 3 mg oral at bedtime for sleep. Significant laboratories this admission, most recent one was from 10/23, white count 11.7, H and H 8.5 and 27.0, platelet count 237. Chemistries: Sodium 149, potassium 3.4, chloride 109, BUN 44, creatinine 1.3, glucose 99, calcium somewhat low at 7.6. However, I believe, she was hypoalbuminemic, albumin was little low at 3.1, and calcium is only slightly low. Urinalysis with abnormalities including leukocytes, few bacteria, but no culture was triggered. Toxicology was negative. Depakote level on 10/16 is 63, which is in therapeutic range. COVID-19 PCR on admission was negative. The discharge with the PCR was also negative. REASON FOR ADMISSION: Back on 10/12, she was brought to the [facility] at [facility]. The patient was apparently manic, refusing medications, complaining of hypokalemia, delusional, the potassium was leaking out of her legs. HOSPITAL COURSE: The patient was admitted to Geriatric Psychiatry Unit. The patient did have manic behavior. She was started on olanzapine, Depakote was added as well. She had had quite a course of in and out of the hospitals, frustrating family, consuming healthcare resources. I got records available, but elected to go ahead and have her neuropsychologist, Dr. Alvarez to see her. The outcome of his evaluation was as follows: He felt she had a major neurocognitive disorder with poor insight and confabulation. In his report, major neurocognitive disorder unspecified given her young age and personality and behavioral change at onset. I believe, it is most likely frontotemporal origin and also history of bipolar disorder current as well. During the course of admission, the patient improved, became much more reasonable. Telephonic family meetings were conducted. Interestingly, the patient's family, namely her ex-, Nain, and brother, Lavelle, [facility], so she was admitted without a guardian in a rare cases, where she was discharged with the guardian and I was not involved in helping the guardianship. In any event, the patient was much improved, family guardians were in agreement with memory care placement. PHYSICAL EXAMINATION: VITAL SIGNS: On day of discharge, temperature 36.7, pulse 72, respirations 18, BP 165/99, O2 sat 93%. MUSCULOSKELETAL: Assisted gait with walker, kyphotic, gross lymphedema on legs, [facility] [address] [place] [address] DISCHARGE SUMMARY Name: JAVED GERARDO Room #: 520B-B [facility] IN M.R.#: [id number] Admission: 10/11/20 Attend Phys: Romario Serna DO Discharge: 10/23/20 Date of : 67 Report #: [id number] which is chronic and some gait disturbance from that. MENTAL STATUS EXAM: This is a well-developed, obese female, unkempt appearing older than stated age. Attention fair. Concentration limited. Speech normal rate, volume, and tone. Thought process: Linear and goal directed. Thought content focused on discharge. Mood and affect was euthymic, congruent. Denied suicidal or homicidal ideation and auditory, visual, or tactile hallucinations. Denied hopelessness, helplessness. Memory not formally tested, known to be impaired. Insight limited. Judgment: Fair to limited. Fund of knowledge low average range. Prognosis for this patient is guarded given the behavioral variant Fronto temporal Dementia and her numerous medical problems. DO SAJAN Bazan/KAL/STAN <ELECTRONICALLY SIGNED> By: Romario Serna DO 10/24/20 1719 1502 1602 Romario Serna, /nt
== END 2020-10-23 15:27 | DRG 884 ==
LOC: SBH 20:13
PROVIDERS: Internal Medicine; ADMIT Psychiatry & Neurology Psychiatry; ATTEND Psychiatry & Neurology Psychiatry
DX: F01.51 Vascular dementia, unspecified severity, with behavioral disturbance (principal); N17.9 Acute kidney failure, unspecified; N18.30 Chronic kidney disease, stage 3 unspecified; I50.32 Chronic diastolic (congestive) heart failure; L02.416 Cutaneous abscess of left lower limb; L97.819 Non-pressure chronic ulcer of other part of right lower leg with unspecified severity; I13.0 Hypertensive heart and chronic kidney disease with heart failure and stage 1 through stage 4 chronic kidney disease, or unspecified chronic kidney disease; Z68.42 Body mass index [BMI] 45.0-49.9, adult; N39.0 Urinary tract infection, site not specified; I42.0 Dilated cardiomyopathy; E87.6 Hypokalemia; E03.9 Hypothyroidism, unspecified; F31.9 Bipolar disorder, unspecified; K21.9 Gastro-esophageal reflux disease without esophagitis; G47.00 Insomnia, unspecified; D63.8 Anemia in other chronic diseases classified elsewhere; G47.33 Obstructive sleep apnea (adult) (pediatric); E66.01 Morbid (severe) obesity due to excess calories; Z20.822 Contact with and (suspected) exposure to COVID-19; Z90.710 Acquired absence of both cervix and uterus; Z98.891 History of uterine scar from previous surgery; Z88.5 Allergy status to narcotic agent
CPT/HCPCS: 10880

== ENCOUNTER 2020-11-01 14:20 | Inpatient (IN) | payer OTHER ==
[2020-11-01] VITALS (13 sets, daily range): BP systolic 111–143; BP diastolic 57–84
[~2020-11-01] VITALS: Ht 162.6 cm; Wt 107.7 kg
--- NOTE | ~2020-11-01 | EKG ---
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
--- NOTE | ~2020-11-01 | EMS ---
[facility] [address] [place] [address] EMS Patient Care Report Name: JAVED GERARDO Room #: 237-P ADM IN M.R.#: [id number] Admission: 11/01/20 Attend Phys: Ej Acuna MD Discharge: Date of : 67 Report #: [id number] THIS REPORT FOR: //name// Report Transmitted: 11/02/2020 07:36 EMS Care Summary [facility] MED-ACT Incident [id number] @ 11/01/2020 13:45 Incident Location [address] [place] [address] Patient JAVED GERARDO Female, 55 Years 1965 Patient Address [address] [place] [address] Patient History Hypertension (HTN),Hyperlipidemia,Bipolar II Disorder,Hyperparathyroidism,Hypokalemia,Cardiomyopathy, Patient Allergies Codeine, Patient Medications Trazodone, Potassium, Losartan, Olanzapine, Hydralazine, Divalproex Sodium, Levothyroxine, Pantoprazole, Furosemide, Chief Complaint shortness of air Disposition Transported No Lights/[place] Dispatch Reason Breathing Problem Transported To [facility] Narrative [place] 1144 dispatched to [facility]pc for pt with shortness of air. OPFD squad [facility] [address] [place] [address] EMS Patient Care Report Name: JAVED GERARDO Room #: 237-P [facility] IN [facility]#: [id number] Admission: 11/01/20 Attend Phys: Ej Acuna MD Discharge: Date of : 67 Report #: [id number] on scene first and staff brought pt out of facility to the front door in a wheelchair. Pt was sitting upright in the wheelchair, AOx3, with double masks on and in no visible distress. Staff say pt started having shortness of air this morning and was given the rapid antigen test for covid. Staff says results of the test were positive. Staff say the pt had a fever of 100.4 F and had an oxygen sat of 82-87% on room air. Staff gave pt Tylenol around 1330 to help with the fever. Pt denies any chest pain, says she's had a cough for a few days and has been coughing up clear phlegm regularly. Pt states she has felt lethargic for the last few days. Pt denies any abdominal pain or nausea and denies any dizziness or lightheadedness while standing. Pt denies any recent change in medications and denies any change in bowel or bladder habits. Pt assisted to stand and pivot onto stretcher from wheelchair. Pt put on NC at 4 lpm once in the ambulance. Pt's oxygen saturation alia to 98%. Pt rested comfortably through transport to hospital. Pt sheet lifted from stretcher to hospital bed and taken off portable oxygen and placed on hospital oxygen. Pt report to RN in room and pt left AOx3, reclined in hospital bed with both bed rails up. Initial Vitals @14:14P: 119,BP: 151/81,SpO2: 98, @14:14P: 118, @14:01P: 115,R: 20,BP: 149/82,Pain: 0/10,Temp: 98.9F,SpO2: 83,MN Suspected: false Assessments @14:00MENTAL:Person Oriented,Time Oriented,Place Oriented,Event Oriented,SKIN:HEENT:Head/Face: No Abnormalities,Neck/Airway: No Abnormalities,LUNG SOUNDS:General: No Abnormalities,ABDOMEN:General: No Abnormalities,PELVIS//GI:No Abnormalities,EXTREMITIES:Left Leg: Edema,Right Leg: Edema,Left Arm: No Abnormalities,Right Arm: No Abnormalities,PULSE:NEURO:No Abnormalities, Impression Shortness of breath Procedures @PTASurgical Mask on Patient@14:05Oxygen FlowRate: 4 Device: Nasal Cannula (NC) Response: ImprovedSucceeded Timeline 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,Surgical Mask on Patient, 13:43,Call Received 13:43,[place] [address] EMS Patient Care Report Name: JAVED GERARDO Room #: 237-P ADM IN ..#: [id number] Admission: 11/01/20 Attend Phys: Ej Acuna MD Discharge: Date of : 67 Report #: [id number] 13:45,Dispatched 13:45,En Route 13:52,On Scene 13:56,At Patient 14:01,BP: 149/82 M,PULSE: 115,RR: 20 R,SPO2: 83 Ox,ETCO2: ,BG: ,PAIN: 0,GCS: , 14:05,Oxygen FlowRate: 4 Device: Nasal Cannula (NC) Response: ImprovedSucceeded, 14:05,Depart Scene 14:13,At Destination 14:14,BP: 151/81 M,PULSE: 119,RR: R,SPO2: 98 Ox,ETCO2: ,BG: ,PAIN: ,GCS: , 14:14,BP: / M,PULSE: 118,RR: R,SPO2: Ox,ETCO2: ,BG: ,PAIN: ,GCS: , 14:35,Call Closed Disclaimer v1.1 Copyright 2020 [employer] This EMS Care Summary contains data elements from the applicable legal record (which may be displayed differently). It is designed to provide pertinent information for the following purposes: continuity of care, clinical quality, and state data reporting. The complete legal record is available to ED staff and administrators of the receiving hospital in [employer] Patient Tracker. All data is provided "as is."
[~2020-11-01 14:20] MED LIST changes: +B-12500 MCG PO; +CIPROFLOXACIN500 M1 PO; +DEPAKOTE500 MG PO; +GENTAMICIN SULF15 GM TOP; +HYDRALAZINE 5050 MG PO; +IRON325 PO; +LASIX 40 MG TAB40 M1 PO; +MELATONIN3 MG PO; +OLANZAPINE2.5 MG PO; +PROTONIX 20 MG20 M1 PO; +SPIRONOLACTONE25 M1 PO; +TIROSINT75 MCG PO; +TRAZODONE HCL50 MG PO; +ZYPREXA 5 MG TAB5 M1 PO
[2020-11-01 14:47] LABS: BE(vivo) 5.2 mmol/L (-2 to +3); HCO3 29.2 mmol/L (22.0-26.0); PCO2 40.6 mmHg (35.0-45.0); PO2 95.4 mmHg (80.0-100.0); pH 7.475 (7.360-7.450); sO2 97.7 % (92.0-98.0)
[2020-11-01 15:06] LABS: ABSOLUTE NEUTROPHILS 15.5 thou/uL (1.4-8.2); BASOPHILS 0.3 % (0.0-2.0); HEMATOCRIT 28.3 % (37.0-47.0); HEMOGLOBIN 9.1 gm/dL (12.0-15.0); MCH 28.9 pg (26.0-34.0); MCV 90.4 fL (80.0-100.0); MONOCYTES 3.6 % (1.0-8.0); PLATELET COUNT 205 thou/uL (150-400); POLYS 91.1 % (36.0-66.0); RBC 3.13 mil/uL (4.20-5.00); RDW 21.9 % (10.5-14.5); WBC 17.1 thou/uL (4.0-11.0)
[2020-11-01 15:22] LABS: ALBUMIN 2.5 g/dL (3.4-5.0); ANION GAP 7 mmol/L (7-16); BUN 33 mg/dL (7-18); CALCIUM 7.1 mg/dL (8.5-10.1); CHLORIDE 109 mmol/L (98-107); CO2 32 mmol/L (21-32); CREATININE 1.4 mg/dL (0.6-1.0); GLUCOSE 126 mg/dL (74-106); SGOT 15 U/L (15-37); SGPT 22 U/L (14-59); SODIUM 148 mmol/L (136-145); TOTAL BILIRUBIN 0.3 mg/dL (0.2-1.0); TOTAL PROTEIN 6.1 g/dL (6.4-8.2); TROPONIN-I <0.06 ng/mL (<0.06)
[2020-11-01 15:24] LABS: POTASSIUM 2.5 mmol/L (3.5-5.1)
[2020-11-01] MEDS ORDERED: VITAMIN B-121000 MC2 PO (17:26)
[2020-11-01] MEDS ORDERED: TRAZODONE HCL100 MG PO (17:26)
--- NOTE | 2020-11-01 17:37 | NUR ---
CL PLACED FOR ICU NEEDS,
[2020-11-01 17:53] LABS: URINE BILIRUBIN NEGATIVE (Negative); URINE BLOOD NEGATIVE (Negative); URINE CLARITY CLEAR; URINE COLOR YELLOW; URINE GLUCOSE-RANDOM* NEGATIVE (Negative); URINE KETONES NEGATIVE (Negative); URINE LEUKOCYTES-REFLEX NEGATIVE (Negative); URINE NITRITE-REFLEX NEGATIVE (Negative); URINE PROTEIN (DIPSTICK) 2+ (Negative); URINE UROBILINOGEN 0.2 E.U./dl (0.2-1.0)
[2020-11-01 18:01] LABS: SQUAMOUS >10 Many /LPF (0-3)
[2020-11-01 18:02] LABS: APTT 28.3 Seconds (24.5-32.8); BACTERIA-REFLEX 1-9 Few /HPF (None Seen); CASTS None Seen /LPF (None Seen); CRYSTALS None Seen /LPF (None Seen); INR 1.07; PROTIME 11.6 Seconds (10.5-12.1); URINE RBC 1-2 Rare /HPF (NONE SEEN); URINE WBC-REFLEX 0-5 Rare /HPF (0-5)
[2020-11-01 20:39] LABS: HCO3 28.3 mmol/L (22.0-26.0); PCO2 51.8 mmHg (35.0-45.0); PO2 89.2 mmHg (80.0-100.0); pH 7.355 (7.360-7.450); sO2 96.4 % (92.0-98.0)
[2020-11-01 21:16] LABS: CREATININE 1.2 mg/dL (0.6-1.0)
[2020-11-01 21:20] LABS: CALCIUM 5.9 mg/dL (8.5-10.1); POTASSIUM 2.4 mmol/L (3.5-5.1)
--- NOTE | 2020-11-01 21:37 | NUR ---
ASSUMED CARE OF PATIENT AT 1900. CONSULTS CALLED. DISCUSSED WITH DR KIM. PER DOCTOR JUDY, DO NOT START HEPARIN GTT R/T CTA RESULTS. EKG DONE TO CONFIRM THAT PATIENT WAS NOT IN AFIB OR SVT. RESULTS COMMUNICATED TO JUDY. HEPARIN GTT HELD. 2016 PATIENT USING ASSESSORY MUSCLES WITH INCREASED WORK OF BREATHING. O2 NEEDS AND VS REMAIN UNCHANGED. RT TO BEDSIDE FOR BREATHING TREAMTENT AND GAS. 2099 DR KIM NOTIFIED OF ABG RESULTS. DISCUSSED PATIENT WORK OF BREATHING. OKAY TO START BIPAP PER DR KIM R/T WORK OF BREATHING AND OBIESITY. 2129 LAUREN, PATIENTS BROTHER CALLED FOR UPDATED. PLAN OF CARE DESCRIBED. PATIENTS BROTHER STATES THAT PATIENT DOES HAVE SOME EPISODES OF LETHARGY AND FORGETFULNESS AND BASELINE. PATIENT BROTHER STATES THAT PATIENT HAS HAD HISTORY OF SVT AND POSSIBLY AN ABLATION LAST YEAR. PATIENT SEES DR. COLIN FOR PRIMARY CARE. WILL FOLLOW UP WITH DAY TEAM TO CONTACT DR. COLIN. WILL CONTINUE TO MONITOR.
--- NOTE | 2020-11-01 22:10 | NUR ---
PT REMAINS ON 100 % BIPAP UNABLE TO KEEP O2 SATS UP. INTUBATED BY ER PROPOFOL FOR SEDATION ER
[2020-11-02] VITALS (48 sets, daily range): BP systolic 108–164; BP diastolic 53–99
[2020-11-02 04:26] LABS: ABSOLUTE NEUTROPHILS 14.9 thou/uL (1.4-8.2); HEMATOCRIT 26.2 % (37.0-47.0); HEMOGLOBIN 8.5 gm/dL (12.0-15.0); LYMPHOCYTES 1.5 % (24.0-44.0); MCH 29.6 pg (26.0-34.0); MCHC 32.5 g/dL (28.0-37.0); MCV 90.9 fL (80.0-100.0); MONOCYTES 2.4 % (1.0-8.0); PLATELET COUNT 176 thou/uL (150-400); POLYS 96.1 % (36.0-66.0); RBC 2.88 mil/uL (4.20-5.00); RDW 21.9 % (10.5-14.5); WBC 15.5 thou/uL (4.0-11.0)
[2020-11-02 04:33] LABS: INR 1.06; PROTIME 11.5 Seconds (10.5-12.1)
[2020-11-02 04:53] LABS: ALBUMIN 2.2 g/dL (3.4-5.0); ANION GAP 12 mmol/L (7-16); BUN 33 mg/dL (7-18); CALCIUM 6.8 mg/dL (8.5-10.1); CHLORIDE 109 mmol/L (98-107); CO2 29 mmol/L (21-32); CREATININE 1.2 mg/dL (0.6-1.0); DIRECT BILIRUBIN < 0.1 mg/dL (<0.1-0.2); GLUCOSE 129 mg/dL (74-106); PHOSPHORUS 4.1 mg/dL (2.5-4.9); SGOT 22 U/L (15-37); SGPT 32 U/L (30-65); SODIUM 150 mmol/L (136-145); TOTAL BILIRUBIN 0.2 mg/dL (0.2-1.0); TOTAL PROTEIN 5.2 g/dL (6.4-8.2)
[2020-11-02 04:56] LABS: POTASSIUM 2.9 mmol/L (3.5-5.1)
[2020-11-02 08:21] LABS: BE(vivo) 0.7 mmol/L (-2 to +3); HCO3 25.5 mmol/L (22.0-26.0); PCO2 41.7 mmHg (35.0-45.0); PO2 58.5 mmHg (80.0-100.0); pH 7.404 (7.360-7.450); sO2 90.5 % (92.0-98.0)
--- NOTE | 2020-11-02 18:35 | NUR ---
PT UNABLE TO TAKE PO MEDS IN AM DUE TO TACHYPNEA. BIPAP SETTINGS ADJUSTED. NOW AVAPS 100%. RATE IMPROVED FROM 30'S-40'S IN AM TO 26-28 THROUGHOUT AFTERNOON. PT NON COMPLIANT W/MASK AT TIMES. BECOMES FIXATED ON FOOD, CONFIRMED W/PT FAMILY THIS IS NORMAL FOR HER. ATIVAN GIVEN X1 IN AFTERNOON PT GREW MORE AGITATED, WAS DISGRUNTLED WHEN EDUCATED ON WHY IT WAS NOT SAFE FOR HER TO EAT AT THIS TIME. 02 SAT 98%-100% WHILE ON BIPAP, LOW 68% WHEN MASK REMOVED. 1800 UPDATED FAMILY REGARDING PT STATUS, STATED HE 02 WAS INCREASED TO 100% ON BIPAP. ALSO, IF OXYGENATION CONTINUES TO WORSEN WOULD NEED INTUBATED. FAMILY WAS RECEPTIVE AND UNDERSTANDING.
--- NOTE | 2020-11-02 22:00 | NUR ---
PT RESTLESS ON 100 % BIPAP O2 SAT 85 TO 88 % DR KIM LEFT ORDERS TO HAVE ER INTUBATE.
--- NOTE | 2020-11-02 22:10 | NUR ---
INTUBATED BY ER PHYSCIAN. SEDATED WITH PROPOFOL NOW./ PTS BROTHER NOTIFIED. WILL CONT TO MONITOR
[2020-11-02 22:42] LABS: BE(vivo) 0.3 mmol/L (-2 to +3); HCO3 25.9 mmol/L (22.0-26.0); PO2 105.4 mmHg (80.0-100.0); pH 7.368 (7.360-7.450); sO2 97.6 % (92.0-98.0)
[2020-11-03] VITALS (28 sets, daily range): BP systolic 136–172; BP diastolic 79–106
--- NOTE | 2020-11-03 00:30 | NUR ---
CXRAY CALLED TO DR KIM. LEFT ORDERS TO PULL BACT ET TUBE 2 CM. WILL CONT TO MONITOR CLOSELY
[2020-11-03 04:55] LABS: BE(vivo) 0.7 mmol/L (-2 to +3); PCO2 28.7 mmHg (35.0-45.0); PO2 90.9 mmHg (80.0-100.0); pH 7.522 (7.360-7.450); sO2 97.8 % (92.0-98.0)
--- NOTE | 2020-11-03 06:00 | NUR ---
REMAINS INTUBATED AND SEDATED WITH PROPOFOL AT 20 MCG AND FENTANYL AT 25 MCG 350 CC UO THIS SHIFT. SINUS Jenna to sinus rhythm. CLRT. REMIANS IN ENHANSED PRECAUTIONS POSITIVE COVID 19. NOT PROGRESSING TOWARD GOALS WILL CONT TO MONITOR./
[2020-11-03 06:02] LABS: ABSOLUTE NEUTROPHILS 9.7 thou/uL (1.4-8.2); BASOPHILS 0.2 % (0.0-2.0); HEMATOCRIT 27.2 % (37.0-47.0); LYMPHOCYTES 2.2 % (24.0-44.0); MONOCYTES 2.6 % (1.0-8.0); PLATELET COUNT 174 thou/uL (150-400); RBC 2.99 mil/uL (4.20-5.00); RDW 22.1 % (10.5-14.5); WBC 10.2 thou/uL (4.0-11.0)
[2020-11-03 06:21] LABS: ALBUMIN 2.1 g/dL (3.4-5.0); ANION GAP 15 mmol/L (7-16); BUN 47 mg/dL (7-18); CALCIUM 6.9 mg/dL (8.5-10.1); CHLORIDE 107 mmol/L (98-107); CO2 23 mmol/L (21-32); CREATININE 1.3 mg/dL (0.6-1.0); DIRECT BILIRUBIN < 0.1 mg/dL (<0.1-0.2); GLUCOSE 184 mg/dL (74-106); PHOSPHORUS 3.5 mg/dL (2.5-4.9); POTASSIUM 3.4 mmol/L (3.5-5.1); SGOT 29 U/L (15-37); SGPT 45 U/L (30-65); SODIUM 145 mmol/L (136-145); TOTAL BILIRUBIN 0.3 mg/dL (0.2-1.0); TOTAL PROTEIN 5.6 g/dL (6.4-8.2)
--- NOTE | 2020-11-03 08:38 | EKG ---
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: CLAYTON : 1965 Requested By: Mackenzie Alves Order Number: [id number] MD: Alvarado Carmichael Measurements Intervals [place] Rate: 129 P: 56 VT: 132 QRS: 13 QRSD: 75 T: 249 QT: 315 QTc: 462 Interpretive Statements Sinus arrhythmia Multiple premature complexes, vent & supraven Nonspecific ST and T wave abnormality Compared to ECG 10/11/2020 14:22:32 Ventricular and supraventricular Complexes are now present ST and T wave abnormality is more pronounced Electronically Signed On 11-03-2020 8:38:10 CDT by Alvarado Carmichael [email or web address] <ELECTRONICALLY SIGNED> By: Alvarado Carmichael MD, [facility] 11/03/20 0838 1507 1507 Alvarado Carmichael MD, [facility] /EPI
--- NOTE | 2020-11-03 08:39 | EKG ---
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 : 1965 Requested By: Mackenzie Alves Order Number: [id number] MD: Alvarado Carmichael Measurements Intervals [place] Rate: 129 P: ND: QRS: 10 QRSD: 82 T: 152 QT: 329 QTc: 482 Interpretive Statements Sinus tachycardia with frequent and consecutive atrial premature complexes Ventricular premature complex Probable LVH with secondary repol abnrm Compared to ECG 11/01/2020 15:07:41 No significant change was found Electronically Signed On 11-03-2020 8:38:53 CDT by Alvarado Carmichael [email or web address] <ELECTRONICALLY SIGNED> By: Alvarado Carmichael MD, [facility] 11/03/20 0838 161 161 Alvarado Carmichael MD, [facility] /EPI
--- NOTE | 2020-11-03 08:39 | EKG ---
[place] [address] [facility] [place] [address] ELECTROCARDIOGRAM REPORT Name: JAVED GERARDO Room #: 237- ADM IN M.R.#: [id number] Admission: 11/01/20 Attend Phys: Ej Acuna MD Discharge: Date of : 67 Report #: [id number] [facility] Test Date: 2020-11-01 Test Time: 20:00:55 Pat Name: JAVED GERARDO Department: Room: 237 P Gender: F Associate Chief Nurse: Nikhil GARCIA : 1965 Requested By: Ej Acuna Order Number: [id number] MD: Alvarado Carmichael Measurements Intervals [place] Rate: 105 P: 34 FL: 128 QRS: 5 QRSD: 76 T: 117 QT: 350 QTc: 463 Interpretive Statements Sinus tachycardia Probable LVH with secondary repol abnrm Compared to ECG 11/01/2020 16:12:30 Atrial premature complexes are no longer present Electronically Signed On 11-03-2020 8:39:19 CDT by Alvarado Carmichael [email or web address] <ELECTRONICALLY SIGNED> By: Alvarado Carmichael MD, [facility] 11/03/20838 99 99 Alvarado Carmichael MD, [facility] /EPI
--- NOTE | 2020-11-03 09:18 | NUR ---
Per Dr Marrero ICU rounds this am, okay to discontinue D5 and will start free water flushes. Order placed for vital HP at 30ml/hr and 250ml water every 6hr
--- NOTE | 2020-11-03 09:42 | NUR ---
cm left message for roldan walls/memory, requested call back. unable to visit with edwige sun on vent. will cont following as needed for dc needs.
--- NOTE | 2020-11-03 11:48 | 2DMMODE ---
[facility] [place] [address] 2 D/M-MODE ECHOCARDIOGRAM Name: JAVED GERARDO Room #: 237-P ADM IN M.R.#: [id number] Admission: 11/01/20 Attend Phys: Ej Acuna MD Discharge: Date of : 67 Report #: [id number] THIS REPORT FOR: cc: Aden Gutiérrez MD, Christopher B. MD Park, Jin S. MD ~ APPROVED REPORT Study performed: 11/03/2020 10:13:08 EXAM: Comprehensive 2D, Doppler, and color-flow Echocardiogram Patient Location: ICU Room #: 237 Status: routine BSA: 1.96 HR: 59 bpm BP: 139/79 mmHg Rhythm: Bradycardia Other Information Study Quality: Good Indications Arrhythmia PSVT 2D Dimensions RVDd: 36.58 mm IVSd: 14.12 (7-11mm) LVOT Diam: 20.11 (18-24mm) LVDd: 36.98 mm PWd: 14.41 (7-11mm) Ascending Ao: 28.24 (22-36mm) LVDs: 27.81 (25-40mm) Left Atrium: 40.05 (27-40mm) Aortic Root: 30.46 mm IVC: 27.00 mm Volumes Left Atrial Volume (Systole) Single Plane 4CH: 69.23 mL Single Plane 2CH: 93.44 mL LA ESV Index: 44.00 mL/m2 Pulmonary Valve PV Peak Navin.: 0.80 m/s PV Peak Gr.: 2.55 mmHg Tricuspid Valve [facility] [address] [address] 2 D/M-MODE ECHOCARDIOGRAM Name: JAVED GERARDO Room #: 237-P ADM IN M.R.#: [id number] Admission: 11/01/20 Attend Phys: Ej Acuna MD Discharge: Date of : 67 Report #: [id number] Peak Navin.: 3.01 m/s TR Peak Gr.: 36.31 mmHg PA Pressure: 51.00 mmHg Left Ventricle The left ventricle is normal size. There is normal LV segmental wall motion. Mild concentric left ventricular hypertrophy. The left ventricular systolic function is normal. The left ventricular ejection fraction is within the normal range. LVEF is 50-55%. This study is not technically sufficient to allow evaluation of the LV diastolic function. Right Ventricle The right ventricle is normal size. The right ventricular systolic function is normal. Atria Left atrium is dilated. Right atrium is at the upper limits of normal. Aortic Valve The aortic valve is normal in structure. The Aortic valve is sclerotic. No aortic regurgitation is present. There is no aortic valvular stenosis. Mitral Valve The mitral valve is normal in structure. Mild mitral regurgitation. No evidence of mitral valve stenosis. Tricuspid Valve The tricuspid valve is normal in structure. There is mild tricuspid regurgitation. Estimated PAP 42 mmHg. Pulmonic Valve The pulmonary valve is normal in structure. Great Vessels The aortic root is normal in size. The inferior vena cava is dilated with no inspiratory collapse. Pericardium There is no pericardial effusion. <Conclusion> The left ventricle is normal size. Mild concentric left ventricular hypertrophy. [facility] [address] [address] 2 D/M-MODE ECHOCARDIOGRAM Name: JAVED GERARDO Room #: 237-P ADM IN .R.#: [id number] Admission: 11/01/20 Attend Phys: Ej Acuna MD Discharge: Date of : 67 Report #: [id number] The left ventricular systolic function is normal. The right ventricle is normal size. Left atrium is dilated. The Aortic valve is sclerotic. Mild mitral regurgitation. There is mild tricuspid regurgitation. Estimated PAP 42 mmHg. <ELECTRONICALLY SIGNED> By: Cyrus Persaud MD 11/03/20 1148 1148 1148 Cyrus Persaud MD /INF
--- NOTE | 2020-11-03 12:33 | HC ---
[facility] [place] [address] CONSULTATION Name: JAVED GERARDO Room #: 237-P [facility] IN M.R.#: [id number] Admission: 11/01/20 Attend Phys: Ej Acuna MD Discharge: Date of : 67 Report #: [id number] THIS REPORT FOR: cc: Aden Gutiérrez MD, Christopher B. MD Park, Jin S. MD ~ DOC #: [id number] Cyrus Presaud MD DATE OF SERVICE: 11/02/2020 CARDIOLOGY CONSULTATION INDICATION: Tachycardia. HISTORY OF PRESENT ILLNESS: This is a 55-year-old female with a history of bipolar disorder, [facility] resident, morbid obesity, hypertension, chronic cellulitis, presenting with respiratory failure. She developed hypoxia at a residence, noted to have oxygen saturation in the 80s. Rapid COVID test at her nursing facility was positive. She reported generalized weakness, chest discomfort and shortness of breath. In the ER and in the ICU, she has had very brief runs of a narrow complex tachycardia, most likely PSVT. Not requiring any medications with spontaneous conversion. PAST MEDICAL HISTORY: Bipolar disorder. Apparent history of hypertension with diastolic dysfunction, history of SVT, history of morbid obesity, anemia, vascular dementia with behavioral disturbance. ALLERGIES: HYDROCODONE. MEDICATIONS: Include trazodone, iron tablets, hydralazine 3 times a day, spironolactone, Lasix daily and levothyroxine. SOCIAL HISTORY: Negative for tobacco use. FAMILY HISTORY: Negative for premature CAD. REVIEW OF SYSTEMS: A full 10-point review of systems performed. Only the pertinent positives and negatives described in the HPI. PHYSICAL EXAMINATION: VITAL SIGNS: Blood pressure is 144/70, heart rate is 80 beats per minute. GENERAL APPEARANCE: This is an overweight female in no acute distress. HEENT: Normocephalic, atraumatic. Oral mucosa moist. NECK: Supple. LUNGS: Diminished breath sounds at the bases. CARDIAC: Distant heart sounds S1, S2 positive. [facility] [address] [place] [address] CONSULTATION Name: JAVED GERARDO Room #: [address] [place] [address] [place] [facility].#: [id number] Admission: 11/01/20 Attend Phys: Ej Acuna MD Discharge: Date of : 67 Report #: [id number] ABDOMEN: Protuberant, soft, nontender. EXTREMITIES: Bilateral edema. Both lower extremities are wrapped in bandages has underlying ulcer. IMAGING STUDIES: ECG reveals sinus rhythm, nonspecific ST segment abnormality. LABORATORY DATA: White count 15.5, hemoglobin is 8.5, sodium is 150. Creatinine is 1.2. COVID positive. Troponins negative. ASSESSMENT AND PLAN: 1. Supraventricular tachycardia, telemetry strips revealed brief runs of a narrow complex supraventricular tachycardia, with spontaneous conversion. Most likely due to underlying condition/hypoxia. Not taking oral meds as she is currently wearing a BiPAP mask. Will probably need a beta ramila eventually. 2. Respiratory failure/COVID pneumonia, continue antibiotics and COVID treatment per protocol as per ID and pulmonary. 3. Chronic edema/lower extremity wound, continue with diuresis and needs wound care evaluation. 4. Hypertension, continue with medications. 5. Diastolic dysfunction, appears to be stable at this time. Will eventually need an echocardiogram. 6. Anemia, follow hemoglobin. Continue with iron sulfate. Cyrus Persaud MD AVILA/LON <ELECTRONICALLY SIGNED> By: Cyrus Persaud MD 11/03/20 1233 0937 20 Cyrus Persaud MD /nt
--- NOTE | 2020-11-03 16:17 | HC ---
[facility] [place] [address] CONSULTATION Name: JAVED GERARDO Room #: 237-P ADM IN M.R.#: [id number] Admission: 11/01/20 Attend Phys: Ej Acuna MD Discharge: Date of : 67 Report #: [id number] THIS REPORT FOR: cc: Aden Guitérrez MD,Nithin Bolden MD, MD ~ DOC #: [id number] Nithin Gutiérrez MD DATE OF SERVICE: 11/02/2020 INFECTIOUS DISEASE CONSULTATION REASON FOR CONSULTATION: I am asked to evaluate concerning respiratory failure and COVID-19 infection. HISTORY OF PRESENT ILLNESS: The patient is a 55-year-old with underlying history of dementia, diabetes, chronic lymphedema, who has been in institution for several weeks now. Initially was at the [facility] memory care unit, then later transferred to fdc. She has had no COVID vaccination. She has had negative COVID screening test within the last 2 weeks, presents now with 4-day history of increased chest discomfort, shortness of breath and fever. Admitted through the emergency room where she was found to have COVID positive screening test. Bilateral pulmonary infiltrates and respiratory failure. Now, she is in the intensive care unit on 100% BiPAP. She denies any headache, loss of taste or smell. She has nonproductive cough and progressive shortness of breath. She did have a run of SVT, which is now controlled. 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 REVIEW OF SYSTEMS: A 14-point review of system was negative other than what has been described above. She does have bilateral lower extremity chronic lymphedema and ulcerations, which have been dressed and cared for by wound care clinic. ALLERGIES: HYDROCODONE. MEDICATIONS: As noted on her MAR. She was placed on corticosteroids, remdesivir, ceftriaxone. PAST MEDICAL HISTORY: Lower extremity cellulitis and ulcerations with chronic venous stasis disease, hypothyroidism, hysterectomy, diverticulitis, pituitary mass, bipolar disorder, hypertension, congestive heart failure with cardiomyopathy, chronic lymphedema. FAMILY HISTORY: Negative for tuberculosis. SOCIAL HISTORY: She is a nonsmoker, no significant alcohol intake. Denies HIV [address] [address] CONSULTATION Name: JAVED GERARDO Room #: 237-P [facility] IN ..#: [id number] Admission: 11/01/20 Attend Phys: Ej Acuna MD Discharge: Date of : 67 Report #: [id number] or tuberculosis exposure. PHYSICAL EXAMINATION: VITAL SIGNS: She was afebrile, hemodynamically was stable. She was alert and cooperative. She was on BiPAP 100% and short of breath. SKIN: With wounds both lower extremities were dressed and dry. She had 2+ lymphedema of both lower extremities with Royer wraps in place. No palpable adenopathy. HEENT: Eyes without scleral icterus or conjunctivitis. Mouth without mucositis. NECK: Supple. LUNGS: Coarse breath sounds bilaterally. HEART: Regular, without appreciable murmur, gallop or rub. ABDOMEN: Obese, soft, nontender, no hepatosplenomegaly or mass. GENITAL AND RECTAL EXAMINATION: Not performed. EXTREMITIES: As noted. NEUROLOGIC: Cranial nerves intact. Back was nontender. Strength in the upper and lower extremities within normal limits. Mood without anxiety. LABORATORY DATA: Reviewed. MICROBIOLOGY: Reviewed. Chest x-ray reviewed. IMPRESSION: 1. COVID-19 with SARS and respiratory failure. 2. Supraventricular tachycardia, now controlled with history of cardiomyopathy. 3. Dementia. 4. Diabetes. 5. Hypothyroidism. 6. Morbid obesity. RECOMMENDATION: We will continue full ICU support with antiviral anti-inflammatory program. Discussed with the patient the addition of Actemra to her program. We will screen HIV and tuberculosis, but the patient is at no increased risk. 1. Controlled diabetes. 2. Discussed with respiratory therapy. The patient will remain on BiPAP for now, but if any further compromise, she will need to be intubated and placed on mechanical ventilation. We will give multivitamins in addition when able to take enterally. Discussed with nursing staff, ICU staff at bedside. [address] [address] CONSULTATION Name: HUMAIRAJAVED Room #: 237-P [facility] IN M.R.#: [id number] Admission: 11/01/20 Attend Phys: Ej Acuna MD Discharge: Date of : 67 Report #: [id number] MD VIRGIE Mosley/DECLAN/CARMINEI <ELECTRONICALLY SIGNED> By: Nithin Gutiérrez MD 11/03/20 1617 1048 2131 Nithin Gutiérrez MD /nt
[2020-11-03 17:06] LABS: HIV ANTIBODY Non Reactive (Non Reactive)
--- NOTE | 2020-11-03 21:39 | NUR ---
call from gigi romero provided, all questions answered within scope of practice
[2020-11-04] VITALS (26 sets, daily range): BP systolic 143–171; BP diastolic 81–96
[2020-11-04 04:19] LABS: BE(vivo) -4.4 mmol/L (-2 to +3); HCO3 19.7 mmol/L (22.0-26.0); PCO2 32.6 mmHg (35.0-45.0); PO2 139.2 mmHg (80.0-100.0); sO2 98.8 % (92.0-98.0)
[2020-11-04 04:46] LABS: ABSOLUTE NEUTROPHILS 10.7 thou/uL (1.4-8.2); BASOPHILS 0.3 % (0.0-2.0); HEMATOCRIT 26.9 % (37.0-47.0); HEMOGLOBIN 8.8 gm/dL (12.0-15.0); LYMPHOCYTES 1.3 % (24.0-44.0); MCH 29.5 pg (26.0-34.0); MCHC 32.5 g/dL (28.0-37.0); MCV 90.7 fL (80.0-100.0); MONOCYTES 2.8 % (1.0-8.0); PLATELET COUNT 181 thou/uL (150-400); POLYS 95.6 % (36.0-66.0); RBC 2.97 mil/uL (4.20-5.00); RDW 21.9 % (10.5-14.5); WBC 11.2 thou/uL (4.0-11.0)
[2020-11-04 05:15] LABS: ALBUMIN 2.4 g/dL (3.4-5.0); CALCIUM 6.9 mg/dL (8.5-10.1); CREATININE 1.4 mg/dL (0.6-1.0); POTASSIUM 3.5 mmol/L (3.5-5.1); TOTAL BILIRUBIN 0.4 mg/dL (0.2-1.0); TOTAL PROTEIN 5.9 g/dL (6.4-8.2)
[2020-11-04 05:24] LABS: DIRECT BILIRUBIN 0.1 mg/dL (<0.1-0.2); PHOSPHORUS 4.2 mg/dL (2.5-4.9)
--- NOTE | 2020-11-04 05:52 | NUR ---
PT FOLLOWS COMMANDS, GET AGITATED WITH LIGHTENED SEDATION, SA, BP STABLE, SATS >97%, TOLERATES TURNS AND BATH WELL, NO SECRETIONS, TOLERATING VENT WELL
--- NOTE | 2020-11-04 12:03 | NUR ---
cm notified by [facility] that she was on service with prior to hospital. cm provided updates. will cont following as needed for dc needs.
--- NOTE | 2020-11-04 12:21 | HC ---
[facility] [place] [address] CONSULTATION Name: JAVED GERARDO Room #: 237-P [facility] IN M.R.#: [id number] Admission: 11/01/20 Attend Phys: Ej Acuna MD Discharge: Date of : 67 Report #: [id number] THIS REPORT FOR: cc: Aden Gutiérrez MD, Christopher B. MD Stephens, Thad A. MD ~ DOC #: [id number] Coy Mahmood MD DATE OF SERVICE: 11/03/2020 CHIEF COMPLAINT: Coccyx ulcer and lower extremity edema. HISTORY OF PRESENT ILLNESS: This is a 55-year-old white female who is currently intubated and sedated in the ICU secondary to respiratory failure and COVID-19 pneumonia. On admission, the patient was noted to have a possible coccyx ulcer. We have been asked to follow the patient for this. The patient once again is unable to give any history because of her medical condition, the patient does have lymphedema wraps in place. PAST MEDICAL HISTORY: Significant for dementia with behavioral disturbance, COVID-19 positive, chronic lymphedema. CURRENT MEDICATIONS: Multiple, I reviewed the patient's medication list. DRUG ALLERGIES: HYDROCODONE. SOCIAL HISTORY: The patient most recently was in a skilled facility. Denies tobacco use. FAMILY HISTORY AND REVIEW OF SYSTEMS: Unobtainable, because patient is intubated and sedated. PHYSICAL EXAMINATION: VITAL SIGNS: Stable. The patient is afebrile. GENERAL: This is an intubated, sedated white female who is in the ICU, in no obvious distress. HEENT: Normocephalic, atraumatic. Mucous membranes are dry. Endotracheal tubes in place. NECK: Without JVD. LUNGS: Slight diminished breath sounds heard throughout. HEART: Bradycardic. ABDOMEN: Obese, soft, nontender. Evaluation of the sacrococcygeal region reveals moisture-associated dermatitis. No signs of any obvious pressure ulceration. EXTREMITIES: The patient has bilateral lower extremity lymphedema, wraps appropriately placed. [address] [address] CONSULTATION Name: JAVED GERARDO Room #: 237-P [facility] IN M.R.#: [id number] Admission: 11/01/20 Attend Phys: Ej Acuna MD Discharge: Date of : 67 Report #: [id number] NEUROLOGIC: Cranial nerves II-XII grossly intact. Motor and sensory are grossly intact. LABORATORY DATA: White count 10.2, hemoglobin 9.0, BUN 47, creatinine 1.3, albumin 2.1. IMPRESSION: 1. Acute respiratory failure with positive COVID-19. 2. Chronic lymphedema with lower extremity edema. 3. Moisture-associated dermatitis sacrococcygeal region. 4. Generalized debility. PLAN: Continue with the lymphedema wraps as previously placed. We will start barrier cream to the sacrococcygeal region b.i.d. and p.r.n. soilage. The patient will be placed on the lower lateral surface and will be turned every 2 hours. We will elevate her heels with pillows at this time. We will continue all of her current medications. MD MICHAEL Renae/HERNANDO <ELECTRONICALLY SIGNED> By: Coy Mahmood MD 11/04/20 1221 1200 [id number] Coy Mahmood MD /nt
--- NOTE | 2020-11-04 16:04 | NUR ---
BPCI letter provided to patient chart, unable to speak to patient and no family present
[2020-11-05] VITALS (22 sets, daily range): BP systolic 139–161; BP diastolic 73–92
[2020-11-05 05:56] LABS: ALBUMIN 2.4 g/dL (3.4-5.0); CALCIUM 6.9 mg/dL (8.5-10.1); CREATININE 1.3 mg/dL (0.6-1.0); DIRECT BILIRUBIN 0.1 mg/dL (<0.1-0.2); PHOSPHORUS 4.3 mg/dL (2.5-4.9); POTASSIUM 3.6 mmol/L (3.5-5.1); TOTAL BILIRUBIN 0.3 mg/dL (0.2-1.0); TOTAL PROTEIN 5.8 g/dL (6.4-8.2)
--- NOTE | 2020-11-05 11:05 | NUR ---
laura spoke with brennan at [facility]. [phone], fax # [phone], roldan rawls would like her to have rehab prior to returning to [facility]. had [facility] in past as well. faxed updates. pt had [facility] stay in past, might need to look into acute rehab when ready.
--- NOTE | 2020-11-05 18:26 | NUR ---
SPOKE WITH FAMILY TODAY ON PHONE. PATIENT CONTINUES ON SAME VENTILATOR SETTINGS. INCREASING TUBE FEEDINGS.
[2020-11-06] VITALS (25 sets, daily range): BP systolic 138–189; BP diastolic 68–97
[2020-11-06 04:41] LABS: BE(vivo) -0.2 mmol/L (-2 to +3); HCO3 23.3 mmol/L (22.0-26.0); PCO2 33.9 mmHg (35.0-45.0); PO2 93.3 mmHg (80.0-100.0); pH 7.455 (7.360-7.450); sO2 97.5 % (92.0-98.0)
[2020-11-06 05:03] LABS: HEMATOCRIT 27.3 % (37.0-47.0); HEMOGLOBIN 9.3 gm/dL (12.0-15.0); MCH 30.2 pg (26.0-34.0); MCV 88.9 fL (80.0-100.0); PLATELET COUNT 184 thou/uL (150-400); RBC 3.07 mil/uL (4.20-5.00); RDW 23.1 % (10.5-14.5)
[2020-11-06 05:35] LABS: ALBUMIN 2.3 g/dL (3.4-5.0); CALCIUM 6.6 mg/dL (8.5-10.1); CREATININE 1.1 mg/dL (0.6-1.0); POTASSIUM 3.6 mmol/L (3.5-5.1); TOTAL BILIRUBIN 0.3 mg/dL (0.2-1.0); TOTAL PROTEIN 5.6 g/dL (6.4-8.2)
--- NOTE | 2020-11-06 06:48 | NUR ---
ASSESSMENT: PT REMAIN ALERT WHEN SEDATION IS TITRATED DOWN. DOES ATTEMPT TO FOLLOW SIMPLE COMMANDS OF OPENING EYES, SQUEEZE FINGERS AND MOVE LEGS. SAVANNA WRIST RESTRAINTS INTACT AND NEEDS RENEWAL AT 0800. VSS, AFEBRILE. VENT SETTING:TV-500, FI02-40%, AC-22, PEEP-10. MINIMAL SUCTIONING WITH MODERATE AMTS OF SECRETIONS. OCCULT STOOL PENDING. DID HAVE SMALL AMT OF OOZING, TOO MUCH Z-CHRISTINE TO GET A GOOD SAMPLE. FABIAN PATENT WITH LIGHT YELLOW OUTPUT. VITAL HP INFUSING PER OG WITHOUT DIFFICULTY. GOAL IS 55. SMALL AMTS OF RESIDUAL. SLOW PROGRESS TOWARDS DC GOALS, WILL CONTINUE TO MONITOR.
--- NOTE | 2020-11-06 07:28 | NUR ---
ORDERS RECEIVED FOR EVAL AND TREAT ON 11/02/20. Pt CONTINUES TO BE ON VENT AND SEDATED. WILL PLACE ON HOLD AND AWAIT NEW ORDERS WHEN Pt ABLE TO PARTICIPATE
[2020-11-06 08:48] LABS: ABSOLUTE NEUTROPHILS 6.2 thou/uL (1.4-8.2); ANISOCYTOSIS 1+; PLATELET ESTIMATE NORMAL
--- NOTE | 2020-11-06 15:48 | NUR ---
ASSUMED CARE AT SHIFT CHANGE. ASSESSMENTS PER CHART. BP MAINTAINED THIS AFTERNOON WITH PRN HYDRALAZINE AND SCHEDULED MEDS. LYMPHEDEMA NURSE POINTED OUT A 1x1 ULCER WOUND ON PT LEFT MENDEZ, STATES IT WAS THERE YESTERDAY WHEN SHE WRAPPED THE LEGS WELL. PICTURE PLACED IN CHART AND WOUND CARE NOTIFIED. XEROFORM AND BORDER FOAM PLACED. PRAFO BOOTS AND INTERDRY ORDERED, AWAITING ARRIVAL FROM CS TO PLACE ON PT. UPDATED BROTHERALEJANDRO, TODAY AND DIRECTED HIM TO PATIENT ACCESS FOR PATIENT PORTAL INFORMATION. BROTHER ALSO STATES PURNIMA HARRISON NP IS PATIENT'S MOST RECENT PRIMARY CARE PROVIDER. NO ACUTE CHANGES THROUGHOUT SHIFT THUS FAR. PROGRESSING TOWARDS POC GOALS.
[2020-11-07] VITALS (26 sets, daily range): BP systolic 118–188; BP diastolic 60–90
[2020-11-07 04:09] LABS: BE(vivo) -0.4 mmol/L (-2 to +3); PCO2 33.7 mmHg (35.0-45.0); PO2 111.8 mmHg (80.0-100.0); pH 7.452 (7.360-7.450); sO2 98.3 % (92.0-98.0)
[2020-11-07 05:31] LABS: HEMATOCRIT 28.9 % (37.0-47.0); HEMOGLOBIN 9.7 gm/dL (12.0-15.0); MCH 29.9 pg (26.0-34.0); MCHC 33.6 g/dL (28.0-37.0); PLATELET COUNT 185 thou/uL (150-400); RBC 3.25 mil/uL (4.20-5.00); RDW 22.9 % (10.5-14.5); WBC 7.3 thou/uL (4.0-11.0)
[2020-11-07 06:02] LABS: ALBUMIN 2.2 g/dL (3.4-5.0); CALCIUM 6.7 mg/dL (8.5-10.1); CREATININE 0.9 mg/dL (0.6-1.0); POTASSIUM 3.6 mmol/L (3.5-5.1); TOTAL BILIRUBIN 0.3 mg/dL (0.2-1.0); TOTAL PROTEIN 5.4 g/dL (6.4-8.2)
[2020-11-07 06:32] LABS: ABSOLUTE NEUTROPHILS 6.7 thou/uL (1.4-8.2)
[2020-11-07 06:35] LABS: ANISOCYTOSIS 3+
--- NOTE | 2020-11-07 06:35 | NUR ---
ASSESSMENT: PT REMAIN VENTED WITH UNCHANGED VENT SETTINGS. NO BM, UO ADEQUATE AMTS WITHIN 12 HRS. VSS, AFEBRILE. SB WITH PAC PER MONITOR. SEDATION: FENTANYL @ 75 MCG/HR AND VERSED AT 6MG/HR. TF TOLERATED WITH MINIMAL RESIDUALS. SAVANNA LE DRESSINGS C/D/I. INTERDRY PENDING. SLOW PROGRESS TOWARDS DC GOALS. WILL CONTINUE TO MONITOR.
[2020-11-07 08:59] LABS: T-SPOT.TB Negative
--- NOTE | 2020-11-07 11:21 | NUR ---
chart review. covid +. discussed during am rounds and los. vent, nutritional support. cpap trials. no anticipated dc over the weekend. from [facility] with [facility]. she will need skilled rehab prior to returning to [facility]. bedside nurse cont visit with son yfn via phone call. will cont following as needed for dc needs.
[2020-11-07 17:15] LABS: BE(vivo) 0.7 mmol/L (-2 to +3); HCO3 26.6 mmol/L (22.0-26.0); PCO2 48.8 mmHg (35.0-45.0); PO2 82.5 mmHg (80.0-100.0); pH 7.355 (7.360-7.450); sO2 95.6 % (92.0-98.0)
--- NOTE | 2020-11-07 19:18 | NUR ---
SEDATION VACATION IN AM, PT FOLLOWING COMMANDS ON AND OFF, DID SO THORUGHOUT SHIFT ALSO NODDING TO QUESTIONS. CPAP X2. AFTERNOON CPAP APPROXIAMTLEY 1 HR. ABG IMPROVED WHILE IN CPAP. TUBE FEED RESIDUALS 150-200 DURING SHIFT. AFEBRILE. LARGE BM IN EVENING. FIO2 TO 35% PEEP 8. PT PROGRESSING, MEETING GOALS AT THIS TIME.
[2020-11-08] VITALS (24 sets, daily range): BP systolic 126–170; BP diastolic 63–95
[2020-11-08 04:10] LABS: D-DIMER 1.65 ug/mLFEU (0.19-0.50); INR 1.05; PROTIME 11.4 Seconds (10.5-12.1)
[2020-11-08 04:18] LABS: ABSOLUTE NEUTROPHILS 10.7 thou/uL (1.4-8.2); BASOPHILS 0.1 % (0.0-2.0); HEMATOCRIT 30.1 % (37.0-47.0); HEMOGLOBIN 9.7 gm/dL (12.0-15.0); LYMPHOCYTES 2.7 % (24.0-44.0); MCH 28.6 pg (26.0-34.0); MCHC 32.2 g/dL (28.0-37.0); MCV 88.9 fL (80.0-100.0); MONOCYTES 2.3 % (1.0-8.0); PLATELET COUNT 203 thou/uL (150-400); POLYS 94.9 % (36.0-66.0); RBC 3.39 mil/uL (4.20-5.00); RDW 22.1 % (10.5-14.5); WBC 11.3 thou/uL (4.0-11.0)
[2020-11-08 04:35] LABS: ALBUMIN 2.2 g/dL (3.4-5.0); ANION GAP 12 mmol/L (7-16); BUN 62 mg/dL (7-18); CALCIUM 6.7 mg/dL (8.5-10.1); CHLORIDE 111 mmol/L (98-107); CO2 26 mmol/L (21-32); CREATININE 0.9 mg/dL (0.6-1.0); DIRECT BILIRUBIN < 0.1 mg/dL (<0.1-0.2); GLUCOSE 184 mg/dL (74-106); POTASSIUM 3.6 mmol/L (3.5-5.1); SGOT 6 U/L (15-37); SGPT 22 U/L (30-65); SODIUM 149 mmol/L (136-145); TOTAL BILIRUBIN 0.3 mg/dL (0.2-1.0); TOTAL PROTEIN 5.4 g/dL (6.4-8.2)
[2020-11-08 10:13] LABS: BE(vivo) -1.9 mmol/L (-2 to +3); HCO3 22.3 mmol/L (22.0-26.0); PCO2 36.3 mmHg (35.0-45.0); PO2 78.6 mmHg (80.0-100.0); pH 7.407 (7.360-7.450); sO2 95.8 % (92.0-98.0)
--- NOTE | 2020-11-08 17:15 | NUR ---
PT EXTUBATED AT 1600 BY RT. PT NOW ON OPTIFLOW WITH 40L AND 40% FIO2, TOLERATING WELL. PT FSC AND SATURATIONS ABOVE 92%. OGT TUBE DC'D BY RN. NO S/S OF TUBE FEED ASPIRATION. PT AFEBRILE, ADEQUATE UOP, NO BM, TOLERATED TUBE FEEDINGS WHILE OGT WAS IN PLACE. CPAP TRIAL THIS AM. LOWER EXTREMITIES ARE WRAPPED AND WAITING FOR WOUND CARE TEAM. PT AND FAMILY HAVE BEEN EXTENSIVELY UPDATED AND EDUCATED ON PT CONDITION AND POC. PT PROGRESSING TOWARDS POC.
[2020-11-09] VITALS (24 sets, daily range): BP systolic 121–187; BP diastolic 69–111
[2020-11-09 04:25] LABS: HEMATOCRIT 30.2 % (37.0-47.0); HEMOGLOBIN 9.9 gm/dL (12.0-15.0); MCH 29.2 pg (26.0-34.0); MCV 88.5 fL (80.0-100.0); PLATELET COUNT 210 thou/uL (150-400); RBC 3.41 mil/uL (4.20-5.00); RDW 22.3 % (10.5-14.5); WBC 11.9 thou/uL (4.0-11.0)
[2020-11-09 04:48] LABS: ALBUMIN 2.4 g/dL (3.4-5.0); CALCIUM 6.7 mg/dL (8.5-10.1); CREATININE 0.8 mg/dL (0.6-1.0); DIRECT BILIRUBIN 0.1 mg/dL (<0.1-0.2); PHOSPHORUS 3.9 mg/dL (2.5-4.9); POTASSIUM 3.3 mmol/L (3.5-5.1); TOTAL BILIRUBIN 0.5 mg/dL (0.2-1.0); TOTAL PROTEIN 5.6 g/dL (6.4-8.2)
[2020-11-09 05:41] LABS: ABSOLUTE NEUTROPHILS 11.3 thou/uL (1.4-8.2); ANISOCYTOSIS 3+
--- NOTE | 2020-11-09 15:00 | NUR ---
PT RESTING COMFORTABLY TODAY ON 4-6L NC. LUNGS ARE COURSE, GREATER ON THE RIGHT. PT AFEBRILE, ADEQUATE UOP, NO BM, VERY MOTIVATED BY FOOD. NEEDS SPEECH PATHOLOGY TO DO A SWALLOW EVAL DUE TO SUSPICION OF POSSIBLE ASPIRATION. WOUND CARE NEEDS TO SEE THE PT TO CLEAN AND DRESS HER BILATERAL LOWER EXTREMITIE LYMPHEDEMA. PT WAS ABLE TO SPEAK WITH FAMILY OVER THE PHONE TODAY. PT AND FAMILY HAVE BEEN UPDATED AND EDUCATED ON PT CONDITION AND POC. PT PROGRESSING TOWARDS POC.
--- NOTE | 2020-11-09 23:10 | NUR ---
PT ALERT AND ORIENT TIMES THREE, FORGETFUL AT TIMES. VSS, AFEBRILE. ON 6 LITERS O2. + DRY COUGH, MINIMAL AMTS OF ORAL SECREATIONS. ORAL CARE PROVIDED. CONTINUOUSLY REQUEST "SOMETHING TO EAT OR DRINK". PT IS NPO FOR SPEECH EVAL ON TOMORROW. RIGHT IJ INTACT. SR WITH PAC/PVC'S PER MONITOR. FABIAN PATENT WITH YELLOW URINE. PER DR RIDLEY AND OLIVE PITTER JUAN MANUEL RAWLS TO TRANSFER PT TO ROOM 352 ON . REPORT GIVEN TO ANGIE WHITE. SAVANNA LE DRESSING INTACT. PT + COVID, REMDESIVIR DOSE FOR TONIGHT COMPLETE. PT TRANSFERRED [id number].
[2020-11-10 04:10] VITALS: BP 155/85
[2020-11-10 04:42] LABS: ALBUMIN 2.5 g/dL (3.4-5.0); CALCIUM 6.8 mg/dL (8.5-10.1); CREATININE 0.8 mg/dL (0.6-1.0); DIRECT BILIRUBIN 0.2 mg/dL (<0.1-0.2); PHOSPHORUS 3.9 mg/dL (2.5-4.9); TOTAL BILIRUBIN 0.6 mg/dL (0.2-1.0); TOTAL PROTEIN 5.6 g/dL (6.4-8.2)
[2020-11-10 04:52] LABS: POTASSIUM 2.8 mmol/L (3.5-5.1)
--- NOTE | 2020-11-10 05:07 | NUR ---
CRITICAL LAB CALLED BY ERIN FROM LAB, K+ 2.8. NOTIFIED MANAGER AUTO. PT ON ELECTROLYTE PROTOCOL. WILL FOLLOW POC AND INFUSE K+ X2.
[2020-11-10 07:23] VITALS: BP 154/82
[2020-11-10 12:03] VITALS: BP 157/89
--- NOTE | 2020-11-10 14:04 | NUR ---
RAHAT reviewed chart and spoke with nursing and attending physician. Pt was extubated over the weekend. Pt transferred to from ICU and is progressing towards goals for discharge to post-acute care. Pt remains in Enhanced Isolation due to COVID. Pt is on 5-6L of O2. Pt is on IV lasix and completing course of Remdesivir. Pt passed her swallow eval this morning and has been started on a regular diet. PT/OT to evaluate pt today. Discharge is anticipated in 1-2 days. RAHAT discussed with N rehab/pre vocational counselor. Consult for 5N ordered. Pt had recent stay on [facility] in September/October of this year. Pt discharged to [facility] from [facility]. RAHAT spoke with pt via phone. Introduced role of SW. Pt appears to be alert/orientated. Pt states she uses her walker at the facility. No stairs to navigate. Pt's PCP is Dr. Ward Gutiérrez at the facility. Pt is agreeable with going to rehab prior to returning to [facility]. RAHAT spoke with pt's brother, Lavelle, via phone. Introduced role of SW. Provided update and contact info for pt, nurses station and SW to Lavelle. Lavelle is agreeable with [facility] referral. RAHAT informed Lavelle of anticipated discharge timeframe. Per Lavelle, he is co-guardian with his sister and pt's ex-. Ppwk in medical records, states that pt's ex-, Nain is her DPOA, Pt's son, Mariano is listed as an alternate. Ppwk placed o pt's chart. RAHAT spoke with Noelle at [facility], who states they do not have any guardianship ppsk on file for pt. Awaiting input from [facility] at this time. RAHAT is following to assist as needed with discharge planning.
[2020-11-10 16:27] VITALS: BP 146/81
[2020-11-10 19:55] VITALS: BP 106/92
[2020-11-11 04:30] VITALS: BP 163/81
--- NOTE | 2020-11-11 06:11 | NUR ---
PT MAKING SLOW PROGRESS TOWARDS GOALS. OFF O2 BRIEFLY AT 0100, O2 SATS FELL FROM 95% (6L O2) TO 84% WITHIN A FEW MINUTES. RETURNED TO ITS BASELINE ONCE OXYGEN CANNULA BACK INTO POSITION. LUNGS COARSE RIGHT GREATER THAN LEFT. PT DOES STATED THAT SHE FEELS SHE IS BREATHING EASIER THEN SEVERAL DAYS AGO.
[2020-11-11 07:49] VITALS: BP 157/88
[2020-11-11 08:16] LABS: CALCIUM 6.8 mg/dL (8.5-10.1); CREATININE 0.9 mg/dL (0.6-1.0); POTASSIUM 3.1 mmol/L (3.5-5.1)
[2020-11-11 08:21] VITALS: BP 157/88
--- NOTE | 2020-11-11 12:15 | NUR ---
CARE ASSUMED THIS AM, PT ALERT AND ORIENTED X4, FORGETFUL AT TIMES. DENIES CHEST PAIN, NXV. PT ON 6L OF O2, SOB WITH EXERTION. GENERAL WEAKNESS, PT/OT WORKING WORKING WITH PT. FABIAN CATH IN [facility]. INCONTIENT OF BOWEL. FALL PRECAUTIONS IN PLACE. DENIES ANY NEEDS T MOMENT. WILL CONTINUE TO MONITOR
[2020-11-11] MEDS ORDERED: VITAMIN D325 MC1 PO (14:51)
[2020-11-11] MEDS ORDERED: BENICAR20 MG PO (14:51)
[2020-11-11] MEDS ORDERED: ZINC SULFATE50 MG PO (14:51)
[2020-11-11] MEDS ORDERED: PREDNISONE 20 M20 M1 PO (14:51)
[2020-11-11] MEDS ORDERED: PULMICORT0.5 MG/21 INH (14:51)
[2020-11-11] MEDS ORDERED: ACEROLA C500 MG PO (14:51)
[2020-11-11] MEDS ORDERED: CARVEDILOL3.125 MG PO (14:51)
[2020-11-11] MEDS ORDERED: POTASSIUM20 PO (14:51)
[2020-11-11] MEDS ORDERED: VITAMIN B-1100 M2 PO (14:51)
--- NOTE | 2020-11-11 15:18 | NUR ---
DISCHARGE NOTE: RAHAT reviewed chart and spoke with nursing and attending physician. Discussed case with rehab manager, who states they are able to accept pt. Pt is medically stable to discharge to . Pt will remain in Enhanced Isolation and on 3W. Pt to be made Inpt Acute Rehab status in current room. RAHAT spoke with pt's brother, Lavelle, via phone to provide update. Lavelle verbalized understanding and is agreeable with plan. rehab manager to discuss with pt. Rehab CM to follow and assist as needed with discharge planning.
== END 2020-11-11 15:19 | DRG 870 ==
LOC: ER 14:20 → EROBS 17:14 → ICU 17:14 → 3W 11-09 23:02 → EROBS 11-11 11:38 → 3W 11-11 11:45
PROVIDERS: Emergency Medicine; Internal Medicine; Pediatrics; Specialist; ADMIT Hospitalist; ATTEND Hospitalist
PROC: 02HV33Z Insertion of Infusion Device into Superior Vena Cava, Percutaneous Approach (ICD-10-PCS; principal; 2020-11-01)
PROC: XW033E5 Introduction of Remdesivir Anti-infective into Peripheral Vein, Percutaneous Approach, New Technology Group 5 (ICD-10-PCS; principal; 2020-11-01)
PROC: 5A09357 Assistance with Respiratory Ventilation, Less than 24 Consecutive Hours, Continuous Positive Airway Pressure (ICD-10-PCS; principal; 2020-11-01)
PROC: 5A09357 Assistance with Respiratory Ventilation, Less than 24 Consecutive Hours, Continuous Positive Airway Pressure (ICD-10-PCS; 2020-11-02)
PROC: 5A0935A Assistance with Respiratory Ventilation, Less than 24 Consecutive Hours, High Flow/Velocity Cannula (ICD-10-PCS; 2020-11-02)
PROC: 0BH17EZ Insertion of Endotracheal Airway into Trachea, Via Natural or Artificial Opening (ICD-10-PCS; 2020-11-03)
PROC: 5A1955Z Respiratory Ventilation, Greater than 96 Consecutive Hours (ICD-10-PCS; 2020-11-03)
PROC: 5A0935A Assistance with Respiratory Ventilation, Less than 24 Consecutive Hours, High Flow/Velocity Cannula (ICD-10-PCS; 2020-11-09)
DX: A41.89 Other specified sepsis (principal); U07.1 COVID-19; G92 Toxic encephalopathy; I50.31 Acute diastolic (congestive) heart failure; J80 Acute respiratory distress syndrome; E43 Unspecified severe protein-calorie malnutrition; J12.82 Pneumonia due to coronavirus disease 2019; I47.1 Supraventricular tachycardia; I42.9 Cardiomyopathy, unspecified; Z68.41 Body mass index [BMI] 40.0-44.9, adult; N17.9 Acute kidney failure, unspecified; E87.0 Hyperosmolality and hypernatremia; N39.0 Urinary tract infection, site not specified; K56.7 Ileus, unspecified; E87.1 Hypo-osmolality and hyponatremia; E03.9 Hypothyroidism, unspecified; F31.9 Bipolar disorder, unspecified; I11.0 Hypertensive heart disease with heart failure; E66.01 Morbid (severe) obesity due to excess calories; F01.50 Vascular dementia, unspecified severity, without behavioral disturbance, psychotic disturbance, mood disturbance, and anxiety; D64.9 Anemia, unspecified; E11.9 Type 2 diabetes mellitus without complications; L30.8 Other specified dermatitis; I25.10 Atherosclerotic heart disease of native coronary artery without angina pectoris; E87.6 Hypokalemia; E83.51 Hypocalcemia; I08.1 Rheumatic disorders of both mitral and tricuspid valves; E87.8 Other disorders of electrolyte and fluid balance, not elsewhere classified; F10.11 Alcohol abuse, in remission; Z91.19 Patient's noncompliance with other medical treatment and regimen; Z90.710 Acquired absence of both cervix and uterus; Z79.899 Other long term (current) drug therapy; Z88.5 Allergy status to narcotic agent
CPT/HCPCS: 10078; 10879

== ENCOUNTER 2020-11-11 14:14 | Inpatient (IN) | payer OTHER ==
[~2020-11-11] VITALS: Ht 160 cm; Wt 95.7 kg
--- NOTE | ~2020-11-11 | PLAN ---
[facility] [place] [address] REHAB UNIT PLAN OF CARE Name: JAVED GERARDO Room #: 352-P ADM IN M.R.#: [id number] Admission: 11/11/20 Attend Phys: Nicolas Dallas MD Discharge: Date of : 67 Report #: [id number] THIS REPORT FOR: cc: Aden Gutiérrez MD, Christopher B. MD Smithson,Nicolas Guadalupe MD ~ DOC #: [id number] Nicolas Dallas MD DATE OF SERVICE: 11/12/2020 PROGRESS NOTE AND OVERALL PLAN OF CARE SUBJECTIVE: The patient is seen today. She has been admitted for acute in-hospital inpatient rehabilitation. She is continuing in strict COVID precautions. She was alert, pleasant, follows basic commands. PHYSICAL EXAMINATION: VITAL SIGNS: Temperature 98.3, pulse 70, respirations 20, blood pressure 150/76. LUNGS: On auscultation, she does have some rhonchi. CARDIAC: Regular rate and rhythm. ABDOMEN: Obese. Bowel sounds positive, nontender. NEUROLOGICAL: Moves both upper extremities with functional range of motion, strength is probably a grade 4-/5. Lower extremities: She is quite weak, I would grade her at a 3+/5. She had some difficulty following commands, but appeared cooperative. Functionally, she has been involved with therapies. She is max assist for bed mobility. Upper body dressing is dependent. Lower body dressing is dependent. She was noted to be on 6 liters. She does have poor sitting balance, slouched and the head flexed. She tends to fatigue quickly overall. She is motivated, but does have some decreased insight. Speech therapy has seen her before noted she appears to be at her prior cognitive level. ASSESSMENT: A 55-year-old female with the following problem list: 1. Critical illness myopathy. 2. COVID-19 pneumonia with acute hypoxic respiratory failure and sepsis, was intubated 11/02/2020 through 11/09/2020. 3. Nonsustained ventricular tachycardia, resolved. 4. Acute diastolic heart failure with chronic bilateral lower extremity lymphedema. 5. Electrolyte abnormalities. She has a low potassium was down to 2.6 early this morning. Recheck later is 3.2. She also has hypernatremia. Sodium 151. The hospitalist service is involved. 6. Frontotemporal dementia with behavioral disturbances. 7. Diabetes mellitus type 2. 8. Obesity with protein calorie malnutrition. [address] [address] REHAB UNIT PLAN OF CARE Name: JAVED GERARDO Room #: 352-P [facility] IN [facility]#: [id number] Admission: 11/11/20 Attend Phys: Nicolas Dallas MD Discharge: Date of : 67 Report #: [id number] PLAN: The overall plan of care is based on the pre-admit screen and information garnered from therapy assessments. 1. Estimated length of stay is probably at least 14-21 days. 2. Medical prognosis is reasonably good. 3. Anticipated interventions includes the interdisciplinary acute inpatient rehabilitation program. 4. Anticipated functional outcomes would be for the patient to become ideally modified independent with basic transfers and mobility issues and ADLs, so that she can hopefully return back to her memory care assisted living apartment. 5. Discharge destination is as noted above. 6. Expected therapy by discipline includes PT and OT 1-1/2 hours per day each 5 days a week throughout the duration of the acute inpatient rehabilitation stay. ADDENDUM: The patient's prognosis for significant practical improvement within a reasonable period of time appears good. Given the patient's complex medical condition and risk of further medical complications, rehabilitation services could not be safely provided at a lower level of care such as a senior care facility. Nicolas Dallas MD DGS By: [id number] Nicolas Dallas MD /nt
--- NOTE | ~2020-11-11 | PLAN ---
[facility] [place] [address] REHAB UNIT PLAN OF CARE Name: JAVED GERARDO Room #: 352-P ADM IN M.R.#: [id number] Admission: 11/11/20 Attend Phys: Nicolas Dallas MD Discharge: Date of : 67 Report #: [id number] THIS REPORT FOR: cc: Aden Gutiérrez MD, Christopher B. MD Smithson,Nicolas Guadalupe MD ~ DOC #: [id number] Nicolas Dallas MD DATE OF SERVICE: 11/14/2020 PROGRESS NOTE AND OVERALL PLAN OF CARE SUBJECTIVE: The patient has been seen back today. She remains in strict COVID isolation. Her potassium is being replaced. She still has an elevated sodium. Discussed with the nursing who notes concerns that she is not drinking enough and I noted encouragement to try to have her do that. I discussed with the nurse and the hospitalist service is involved in case there might be a need for IV hydration. Hopefully, the patient will continue to cooperate and drink more as the nursing is going into work with her further at this time. Functionally, she has been working in therapies with transfers, dependent. Gait is not able to be tested. Bed mobility has been max assist. In occupational therapy, upper body dressing has been max assist, lower body has been dependent. She is at a lower level and we are working on trying to gradually increase her strength and endurance. ASSESSMENT: 1. Critical illness myopathy. 2. COVID-19 pneumonia with acute hypoxic respiratory failure and sepsis with intubation on 11/02/2020 through 11/09/2020. 3. Non-supraventricular tachycardia resolved. 4. Acute diastolic heart failure with chronic bilateral lower extremity lymphedema. 5. Electrolyte abnormalities. 6. Frontotemporal dementia with behavioral disturbances. 7. Diabetes mellitus, type 2. 8. Obesity with protein calorie malnutrition. PLAN: The overall plan of care is based on the pre-admission screen and information garnered from therapy assessments. 1. Estimated length of stay is going to be pretty long as she is at a very low level. I am going to estimate at least 14-21 days. 2. Medical prognosis is reasonably good. 3. Anticipated interventions include the interdisciplinary acute inpatient rehabilitation program. 4. Anticipated functional outcomes would be for the patient to hopefully improve as far as basic bed mobility, transfers, ADLs, and gait [place] [address] REHAB UNIT PLAN OF CARE Name: JAVED GERARDO Room #: 352-P [facility] IN [facility]#: [id number] Admission: 11/11/20 Attend Phys: Nicolas Dallas MD Discharge: Date of : 67 Report #: [id number] close as possible to her prior level functionally. 5. Discharge destination would be back to her assisted living facility. 6. Expected therapy by discipline includes PT and OT 1-1/2 hours per day each 5 days a week throughout the duration of the acute inpatient rehabilitation stay. Speech therapy had seen her and thought she was close to her baseline. ADDENDUM: The patient's prognosis for significant practical improvement within a reasonable period of time appears good. Given the patient's complex medical condition and risk of further medical complication, rehabilitation services cannot be safely provided at a lower level of care such as a shelter facility. Nicolas Dallas MD DGS By: 1150 00 Nicolas Dallas MD /nt
[~2020-11-11 14:14] MED LIST changes: +TRAZODONE HCL100 MG PO
[2020-11-11] MEDS ORDERED: ACEROLA C500 MG PO (14:51)
[2020-11-11] MEDS ORDERED: VITAMIN D325 MC1 PO (14:51)
[2020-11-11] MEDS ORDERED: VITAMIN B-1100 M2 PO (14:51)
[2020-11-11] MEDS ORDERED: POTASSIUM20 PO (14:51)
[2020-11-11] MEDS ORDERED: ZINC SULFATE50 MG PO (14:51)
[2020-11-11] MEDS ORDERED: CARVEDILOL3.125 MG PO (14:51)
[2020-11-11] MEDS ORDERED: PREDNISONE 20 M20 M1 PO (14:51)
[2020-11-11] MEDS ORDERED: PULMICORT0.5 MG/21 INH (14:51)
[2020-11-11] MEDS ORDERED: BENICAR20 MG PO (14:51)
--- NOTE | 2020-11-11 16:51 | NUR ---
PATIENT ADMITTED TO ACUTE REHAB SERVICES, BUT WILL BE REMAINING IN ISOLATION IN 352. ANTICIPATE 9 MORE DAYS OF ISOLATION. PRIOR TO TRANSFER TO REHAB UNIT PATIENT WILL NEED 4 HOUR PCR COVID TEST PER ID NURSE.
[2020-11-11 18:09] VITALS: BP 147/94
[2020-11-11 19:30] VITALS: BP 148/74
[2020-11-12 04:19] VITALS: BP 150/76
[2020-11-12 05:14] LABS: HEMATOCRIT 31.2 % (37.0-47.0); HEMOGLOBIN 10.4 gm/dL (12.0-15.0); MCH 29.4 pg (26.0-34.0); MCHC 33.4 g/dL (28.0-37.0); RBC 3.55 mil/uL (4.20-5.00); WBC 10.9 thou/uL (4.0-11.0)
[2020-11-12 05:28] LABS: CALCIUM 6.7 mg/dL (8.5-10.1); CREATININE 0.8 mg/dL (0.6-1.0)
[2020-11-12 05:29] LABS: POTASSIUM 2.6 mmol/L (3.5-5.1)
[2020-11-12 07:27] VITALS: BP 152/84
--- NOTE | 2020-11-12 08:15 | NUR ---
PT MAKING SLOW PROGRESS TOWARDS GOALS. REHAB STATUS NOTED. LUNGS NOTED TO BE LESS DIMINISHED BUT STILL MIDLY COARSE IN BOTH BASES COMPARED TO THIS RN PREVIOUS ASSESSMENT. DID STATE SHE FEELS SHE IS BREATHING EASIER EACH DAY.
--- NOTE | 2020-11-12 12:38 | NUR ---
CARE ASSUMED AT 0700, PT ALERT AND ORIENTED X4, FORGETFUL AT TIMES. PT DENIES ANY PAIN, NAUSEA AND VOMITTING. ON 5L OF OXYGEN, SOB WITH EXERTION. OT AND SPEECH SAW PT TODAY. FABIAN CATHETER IN PLACE, PATENT AND SECURED. REPOSITION EVERY [address]IONS [address] DENIES ANY NEED AT THE MOMENT. WILL CONTINUE TO MONITOR
[2020-11-12 15:56] VITALS: BP 155/87
[2020-11-12 19:51] VITALS: BP 165/71
[2020-11-13 03:06] VITALS: BP 159/76
--- NOTE | 2020-11-13 06:14 | NUR ---
Pt. slept fair during the night.She has been watching TV since she woke up stating she couldn't go back to sleep. Reposition for comfort. Cont. on enhanced precaution , afebrile. Denies any pain. Maintaining O2 sat greater than 90% on 4L/NC. No respiratory distress. Incontinent of bm last night. Ramirez intact with adequate output. Bilateral lower extremities wrapped with GILBERT. Making some progress towards care plan goals.
[2020-11-13 08:34] VITALS: BP 142/71
--- NOTE | 2020-11-13 16:25 | NUR ---
INITIAL REHAB ASSESSMENT: RAHAT reviewed chart and spoke with nursing. Pt was admitted to Inpt Acute Rehab status on Tuesday, 11/11. Pt remains in Enhanced Isolation on 3W due to COVID. Pt on 4L of O2. RAHAT placed call to pt's room. No answer. Pt known to SW. Pt lives in the memory care AL at [facility]. Prior to admission, pt was using a rollater walker. Pt was not on O2 prior to admission. Pt was using [facility] at the facility. RAHAT spoke with Shantell at [facility] to provide update. The facility will need a repeat COVID test prior to pt returning to the facility. The DON may want to do an onsite eval to ensure pt is able to return to her AL apt. RAHAT explained that team conference will be held Tuesday and discharge timeframe may be known at that time. RAHAT left voice message for pt's brother, Lavelle, to provide update. RAHAT updated Ethel at [facility] . Plan is for pt to return to [facility] with [facility] when discharged. RAHAT is following to assist as needed with discharge planning.
--- NOTE | 2020-11-13 19:28 | NUR ---
RN ASSUMED PT'S CARE AT 0700AM, PT IS A&OX2 ( PERSON AND PLACE), PT IS CONFUSED AT TIME, PT IS CONTINUING O2 4L/MIN/NC, PT'S VS AND O2SAT ARE STABLE, PT IS ON COVID ISOLATION, PT HAS PT/OT WORKING WITH HER, PT DENIES PAIN AT DAY SHFIT.
[2020-11-13 19:40] VITALS: BP 145/88
--- NOTE | 2020-11-14 03:19 | NUR ---
Pt. slept well during the night.Maintaining O2 sat in the low to mid 90's on 3L/NC. Repositioned prn for comfort.Cont. on enhanced precaution, afebrile. Likes to eat ice cream stating it's the only thing that tastes good. Lower ext. dressing intact. Making some progress towards care plan goals.
[2020-11-14 05:00] VITALS: BP 142/79
[2020-11-14 05:41] LABS: CALCIUM 7.2 mg/dL (8.5-10.1); CREATININE 0.8 mg/dL (0.6-1.0); MAGNESIUM 2.1 mg/dL (1.8-2.4); POTASSIUM 3.1 mmol/L (3.5-5.1)
[2020-11-14 07:47] VITALS: BP 139/98
[2020-11-14 09:20] VITALS: BP 139/98
--- NOTE | 2020-11-14 12:38 | NUR ---
RAHAT reviewed chart and spoke with nursing and attending physician. Pt remains in Enhanced Isolation due to COVID. Pt is afebrile and on 3L of O2. No weekend discharge planned. Rehab team conference will be held on Tuesday, 11/18. Updates will be faxed to [facility] for review. Facility to be updated regarding discharge timeframe. RAHAT spoke with pt via phone to provide update and discuss discharge plan. Pt agreeable with plan to return to [facility] with [facility]. Pt requests that Eva continue as her HH nurses. RAHAT updated Ethel with [facility] and requested pt have the same staff. RAHAT is following to assist as needed with discharge planning.
--- NOTE | 2020-11-14 17:50 | NUR ---
RN ASSUMED PT'S CARE AT 0700AM, PT IS A&OX3 ( PERSON , PLACE AND TIME), SHE IS CONFUSED AT TIME, PT IS ON O2 3-4 L/MIN/NC, PT STILL HAS SOB WITH EXETION, PT'S VS ARE STABLE, PT HAS MORE TIME TO WORK WITH PT AND OT , PT GETS UP TO CHAIR WITH ASSIST, PT DENIES PAIN BY THIS TIME.
[2020-11-14 20:11] VITALS: BP 146/77
[2020-11-15 03:26] VITALS: BP 145/78
--- NOTE | 2020-11-15 04:21 | NUR ---
PROGRESS PT ALERT AND ORIENTED X 3, FORGETFUL AND CONFUSED AT TIMES. FORGETS WHATS SHE IS DOING AND REMOVES NASAL CANULA FREQUENTLY, O2 SATS DROP DOWN TO 80% RISES TO MID 90'S WITHIN SECONDS OF REPLACING. LUNG SOUNDS COARSE IN UPPER MUÑOZ BUT DIMINISHED IN THE BASES. ABDOMEN SOFT WITH ACTIVE BS IN ALL QUADS. FABIAN CATH IN PLACE DRAINING CLEAR YELLOW URINE IN ADEQUATE AMOUNTS. RIGHT IJ PICC LINE WITH GOOD BLOOD RETURN AND ALL PORTS FLUSH WITHOUT DIFFICULTY. BILATERAL LE LYMPEDEMA WRAPS IN PLACE. PT SLEPT 3 TO 4 HOURS THIS SHIFT, WOKE AND ATE A BOXED LUNCH. VSS CONTINUE POC.
[2020-11-15 05:08] LABS: CALCIUM 7.1 mg/dL (8.5-10.1); CREATININE 0.8 mg/dL (0.6-1.0)
[2020-11-15 05:13] LABS: POTASSIUM 2.9 mmol/L (3.5-5.1)
--- NOTE | 2020-11-15 05:23 | NUR ---
PROGRESS PT A/O X4, VSS TELEMETRY INTACT READING SR. HGB 9 PT ASYMPTOMATIC. HGB MONITORED BY DAILY LABS. TOLERATING DIET. UP WITH SBA. ON ROOM AIR, SKIN C/D/I. DENIES PAIN. NO STOOLS THIS SHIFT. PLAN IS FOR RIGHT HEMICOLECTOMY ON SATURDAY 11/18. CONTINUE PLAN OF CARE.
[2020-11-15 07:42] VITALS: BP 145/83
[2020-11-15 09:53] LABS: HEMATOCRIT 31.5 % (37.0-47.0); HEMOGLOBIN 10.2 gm/dL (12.0-15.0); MCH 29.2 pg (26.0-34.0); MCHC 32.6 g/dL (28.0-37.0); MCV 89.8 fL (80.0-100.0); PLATELET COUNT 132 thou/uL (150-400); RDW 21.7 % (10.5-14.5); WBC 13.2 thou/uL (4.0-11.0)
[2020-11-15 10:12] LABS: ALBUMIN 2.6 g/dL (3.4-5.0); DIRECT BILIRUBIN 0.2 mg/dL (<0.1-0.2); TOTAL BILIRUBIN 0.5 mg/dL (0.2-1.0); TOTAL PROTEIN 4.8 g/dL (6.4-8.2)
[2020-11-15 10:16] LABS: ABSOLUTE NEUTROPHILS 12.4 thou/uL (1.4-8.2); METAMYELOCYTES 1 %; PLATELET ESTIMATE NORMAL
[2020-11-15 10:36] LABS: URINE BILIRUBIN NEGATIVE (Negative); URINE BLOOD NEGATIVE (Negative); URINE CLARITY CLOUDY; URINE COLOR YELLOW; URINE GLUCOSE-RANDOM* NEGATIVE (Negative); URINE KETONES NEGATIVE (Negative); URINE NITRITE-REFLEX NEGATIVE (Negative); URINE PROTEIN (DIPSTICK) 1+ (Negative); URINE UROBILINOGEN 0.2 E.U./dl (0.2-1.0)
[2020-11-15 10:37] LABS: URINE LEUKOCYTES-REFLEX 3+ (Negative)
[2020-11-15 10:44] LABS: AMORPHOUS URATES Moderate /LPF (None Seen); CASTS None Seen /LPF (None Seen); SQUAMOUS 0-3 Few /LPF (0-3); URINE RBC 3-10 Few /HPF (NONE SEEN); YEAST-REFLEX Present (None Seen)
--- NOTE | 2020-11-15 15:17 | NUR ---
CARE ASSUMED THIS A, PT ALERT AND OIRENTED X4, FORGETFUL AT TIMES. DENIES ANY PAIN, NAUSEA AND VOMITTING. PT ON 4L OF OXYGEN, SOB WITH EXERTION. RUI D/C. PT/OT WORK WITH PT, SHE WAS UP IN THE CHAIR FOR HOURS. PT BROTHER CALLED AND UPDTATED ABOUT PT CARE. FALL PRECAUTIONS IN PLACE. WILL CONTINUE TO MONITOR
[2020-11-15 19:50] VITALS: BP 133/67
[2020-11-16 03:18] VITALS: BP 157/85
--- NOTE | 2020-11-16 07:12 | NUR ---
PROGRESS PT ALERT AND ORIENTED TO SELF, SITUATION AND STAFF. DENIES PAIN ON 4 LITERS O2 LUNGS COARSE AND DIMINISHED, PT HAS A NON PRODUCTIVE COUGH, AWAITING SPUTUM SAMPLE. RUI CARRINGTON'Alejandro DURING DAYS. PUREWICK IN PLACE 600 CC'S THIS SHIFT CEFEPIME ORDERED Q12HRS FOR UTI. PT TAKING PILLS WITH PUDDING OR ICE CREAM. RIGHT IJ PICC INTACT GOOD BLOOD RETURN AND FLUSHES WITHOUT DIFFICULTY. VSS CONTINUE POC.
[2020-11-16 07:15] VITALS: BP 161/88
[2020-11-16 08:30] VITALS: BP 145/95
[2020-11-16 10:19] LABS: CALCIUM 7.6 mg/dL (8.5-10.1); CREATININE 0.8 mg/dL (0.6-1.0); POTASSIUM 3.4 mmol/L (3.5-5.1)
[2020-11-16 12:58] VITALS: BP 145/93
[2020-11-16 14:00] LABS: BE(vivo) 2.9 mmol/L (-2 to +3); HCO3 26.6 mmol/L (22.0-26.0); PCO2 37.5 mmHg (35.0-45.0); pH 7.469 (7.360-7.450); sO2 92.5 % (92.0-98.0)
[2020-11-16 15:17] VITALS: BP 145/95
--- NOTE | 2020-11-16 18:24 | NUR ---
PT IS A&OX3 ( PERSON, PLACE AND TIME), PT 'S O2 HAS INCRESED TO 5L/MIN/NC FROM 4L/MIN/NC,RN HAS REPORTED TO HOSPITAL DR ABOUT PT'S ABNORMAL LAB RESULT AND PT'S DE-SAT SOMETIMES, NEW ORDER ABG , RN HAS NOTIFIED DR ABOUT PO2 60 ( LOW), AND LUNG SOUNDS ARE COARSE , PT HAD ONE TIME IV LASIX DOSE 40MG , 1500ML URINE FROM NEW FABIAN CATHETER, PT'S SOB HAS IMPROVED, PT IS CONTINUING IV ABX, PT DENIES PAIN AND SOB AT THIS TIME.
[2020-11-16 19:55] VITALS: BP 157/100
[2020-11-17 05:54] VITALS: BP 150/80
[2020-11-17 06:46] LABS: HEMATOCRIT 32.7 % (37.0-47.0); HEMOGLOBIN 10.6 gm/dL (12.0-15.0); MCH 29.1 pg (26.0-34.0); MCHC 32.3 g/dL (28.0-37.0); RBC 3.63 mil/uL (4.20-5.00); RDW 22.4 % (10.5-14.5); WBC 13.5 thou/uL (4.0-11.0)
[2020-11-17 06:48] LABS: CALCIUM 7.4 mg/dL (8.5-10.1); CREATININE 0.9 mg/dL (0.6-1.0); POTASSIUM 3.5 mmol/L (3.5-5.1)
[2020-11-17 07:44] VITALS: BP 138/77
[2020-11-17 11:07] VITALS: BP 147/85
[2020-11-17 11:38] LABS: BE(vivo) 1.8 mmol/L (-2 to +3); HCO3 25.9 mmol/L (22.0-26.0); PCO2 38.9 mmHg (35.0-45.0); PO2 57.3 mmHg (80.0-100.0); pH 7.442 (7.360-7.450); sO2 90.9 % (92.0-98.0)
== END 2020-11-17 13:06 | disposition short-term general hospital (02) | DRG 91 ==
LOC: 3W 15:24
PROVIDERS: Internal Medicine; Nurse Practitioner Family; Pediatrics; Specialist; ADMIT Physical Medicine & Rehabilitation; ATTEND Physical Medicine & Rehabilitation
DX: G93.1 Anoxic brain damage, not elsewhere classified (principal); A41.9 Sepsis, unspecified organism; U07.1 COVID-19; E43 Unspecified severe protein-calorie malnutrition; J12.82 Pneumonia due to coronavirus disease 2019; J80 Acute respiratory distress syndrome; I50.33 Acute on chronic diastolic (congestive) heart failure; G93.41 Metabolic encephalopathy; G72.81 Critical illness myopathy; E87.0 Hyperosmolality and hypernatremia; N39.0 Urinary tract infection, site not specified; I47.2 Ventricular tachycardia; F03.91 Unspecified dementia, unspecified severity, with behavioral disturbance; I47.1 Supraventricular tachycardia; N17.9 Acute kidney failure, unspecified; E11.9 Type 2 diabetes mellitus without complications; F31.9 Bipolar disorder, unspecified; E66.01 Morbid (severe) obesity due to excess calories; E03.9 Hypothyroidism, unspecified; E87.6 Hypokalemia; E87.8 Other disorders of electrolyte and fluid balance, not elsewhere classified; I11.0 Hypertensive heart disease with heart failure; D64.9 Anemia, unspecified; R53.81 Other malaise; I89.0 Lymphedema, not elsewhere classified; Z68.37 Body mass index [BMI] 37.0-37.9, adult; Z90.710 Acquired absence of both cervix and uterus; Z79.899 Other long term (current) drug therapy
CPT/HCPCS: 10112

== ENCOUNTER 2020-11-17 11:01 | Inpatient (IN) | payer OTHER ==
[~2020-11-17] VITALS: Ht 162.6 cm; Wt 81.2 kg
[~2020-11-17 11:01] MED LIST changes: +ACEROLA C500 MG PO; +BENICAR20 MG PO; +CARVEDILOL3.125 MG PO; +PREDNISONE 20 M20 M1 PO; +PULMICORT0.5 MG/21 INH; +VITAMIN B-1100 M2 PO; +VITAMIN D325 MC1 PO; +ZINC SULFATE50 MG PO
[2020-11-17 15:58] VITALS: BP 138/102
[2020-11-17 20:01] VITALS: BP 149/93
[2020-11-18 04:50] VITALS: BP 157/100
[2020-11-18 05:21] LABS: HEMATOCRIT 32.5 % (37.0-47.0); HEMOGLOBIN 10.7 gm/dL (12.0-15.0); MCH 29.3 pg (26.0-34.0); MCHC 33.1 g/dL (28.0-37.0); MCV 88.5 fL (80.0-100.0); RBC 3.67 mil/uL (4.20-5.00); RDW 21.7 % (10.5-14.5); WBC 12.4 thou/uL (4.0-11.0)
[2020-11-18 05:45] LABS: CALCIUM 7.4 mg/dL (8.5-10.1); CREATININE 0.9 mg/dL (0.6-1.0); POTASSIUM 3.1 mmol/L (3.5-5.1)
[2020-11-18 06:57] VITALS: BP 151/82
--- NOTE | 2020-11-18 08:01 | NUR ---
PT MAKING POOR PROGRESS TOWARDS GOALS. ON O2AT 8L PER NC. O2 SATS WITH SPEAKING 86-88%. AT REST, OS SATS 89-91%. O2 SAT AT REST THIS AM AT 87-88%. O2 INCREASED TO 12L. DR. KIM PRESENT AND REQUESTED OPTIFLO. RT CONTACTED BY DAY RN.
[2020-11-18 11:06] VITALS: BP 153/86
--- NOTE | 2020-11-18 12:43 | NUR ---
INITIAL ASSESSMENT: RAHAT reviewed chart and spoke with nursing. Pt was admitted to Inpt Acute Rehab status on Tuesday, 11/11. Pt was discharged back to acute status on Tuesday, 11/17. Pt remains in Enhanced Isolation on 3W due to COVID. Pt on optiflow. RAHAT placed call to pt's room. No answer. Pt known to RAHAT. Pt lives in the memory care AL at [facility]. Prior to admission, pt was using a rollater walker. Pt was not on O2 prior to admission. Pt was using [facility] at the facility. RAHAT spoke with Noelle at [facility] to provide update. The facility will need a repeat COVID test prior to pt returning to the facility. The DON may want to do an onsite eval to ensure pt is able to return to her AL apt. RAHAT left voice message for pt's brother, Lavelle, to provide update. RAHAT updated Ethel at [facility]. [facility] consulted to evaluate pt for admission back to 5N when medically stable. Plan is for pt to return to [facility] with [facility] when discharged. RAHAT is following to assist as needed with discharge planning.
[2020-11-18 15:38] VITALS: BP 148/89
[2020-11-18 19:46] VITALS: BP 153/118
--- NOTE | 2020-11-19 04:20 | NUR ---
ASSUMED CARE OF PATIENT AT 1900. REMAINS ON OPTIFLOW, NO S/S OF DISTRESS. POC DISCUSSED WELL ISOLATION STANDARDS. WORKING TOWARDS POC GOALS.
[2020-11-19 05:30] VITALS: BP 171/80
[2020-11-19 05:58] LABS: HEMATOCRIT 32.9 % (37.0-47.0); HEMOGLOBIN 10.7 gm/dL (12.0-15.0); MCH 29.2 pg (26.0-34.0); MCHC 32.5 g/dL (28.0-37.0); RBC 3.65 mil/uL (4.20-5.00); WBC 12.3 thou/uL (4.0-11.0)
[2020-11-19 06:16] LABS: CALCIUM 7.3 mg/dL (8.5-10.1); CREATININE 0.8 mg/dL (0.6-1.0); PHOSPHORUS 2.2 mg/dL (2.5-4.9)
[2020-11-19 06:40] LABS: POTASSIUM 4.2 mmol/L (3.5-5.1)
[2020-11-19 07:40] VITALS: BP 154/75
[2020-11-19 11:06] VITALS: BP 150/88
--- NOTE | 2020-11-19 13:59 | NUR ---
RAHAT reviewed chart and spoke with nursing and attending physician. Pt remains in Enhanced Isolation due to COVID. Pt is afebrile and on optiflow. Pt is on IV abx and IV steroids. 5N is following pt for admission to when medically stable. RAHAT discussed with vision rehabilitation therapist, who confirmed plan. RAHAT placed call to pt's room and spoke with pt. Pt is agreeable with plan for 5N then returning to [facility] with [facility]. RAHAT updated Ethel at [facility] . RAHAT is following to assist as needed with discharge planning.
--- NOTE | 2020-11-19 16:39 | NUR ---
PT ALERT AND ORIENTED TIMES FOUR AGITATED THIS MORNING. VSS, HIGH FLOW O2 IN PLACE. SR ON TELE, RUI TO DD. PT DENIES PAIN. PT HAS POOR APPERITE. PT DID NOT WORK WELL WITH PHYSICAL THEARPY TODAY. SPOKE WITH PT BROTHER TO GAETANO ON CARE. WILL CONTINUE TO MONITOR.
[2020-11-19 19:29] VITALS: BP 132/60
[2020-11-20] VITALS (35 sets, daily range): BP systolic 75–177; BP diastolic 46–96
--- NOTE | 2020-11-20 06:30 | NUR ---
POC WITH 02 SATURATION IN MID 90'S WITH OPTIFLOW 40L-70%. LABS DRAWN FROM PICC. IVPB ANTIBIOTICS AND ASORBIC ACID PER EMAR. ISOLATION PRECAUTIONS IN PLACE.
[2020-11-20 06:31] LABS: HEMOGLOBIN 10.7 gm/dL (12.0-15.0); MCH 29.4 pg (26.0-34.0); MCHC 32.4 g/dL (28.0-37.0); MCV 90.7 fL (80.0-100.0); RBC 3.63 mil/uL (4.20-5.00); RDW 22.9 % (10.5-14.5); WBC 10.1 thou/uL (4.0-11.0)
[2020-11-20 06:42] LABS: CALCIUM 7.3 mg/dL (8.5-10.1); CREATININE 0.7 mg/dL (0.6-1.0); PHOSPHORUS 2.9 mg/dL (2.6-4.7); POTASSIUM 3.5 mmol/L (3.5-5.1)
[2020-11-20 11:20] LABS: ALBUMIN 2.3 g/dL (3.4-5.0); ANION GAP 8 mmol/L (7-16); BUN 30 mg/dL (7-18); CHLORIDE 109 mmol/L (98-107); CO2 31 mmol/L (21-32); CREATININE 0.7 mg/dL (0.6-1.0); GLUCOSE 156 mg/dL (74-106); PHOSPHORUS 2.7 mg/dL (2.6-4.7); POTASSIUM 3.3 mmol/L (3.5-5.1); SODIUM 148 mmol/L (136-145); TROPONIN-I <0.06 ng/mL (<0.06)
--- NOTE | 2020-11-20 11:56 | NUR ---
PT PLACED ON HOLD FROM P.T. DUE TO TX TO ICU DUE TO DECLINE IN ACTIVITY TOLERANCE AND PULMONARY STATUS W/PLANS FOR POSSIBLE THOROCENTESIS. REQUEST NEW P.T. ORDERS WHEN APPROPRIATE PER DEPT POLICY.
--- NOTE | 2020-11-20 12:15 | NUR ---
Pt transferred from 3W on face mask at 15L. Pt A/O, when asked if she was having a hard time breathing she nodded and said yes. Pt asked to be sat up in the bed, HOB elevated >40. Awaiting bronch and new orders.
--- NOTE | 2020-11-20 12:51 | NUR ---
PATIENT TRANSFER TO ICU D/T DECLINE IN RESPIRATORY STATUS. PLACED ON HOLD AND WILL NEED NEW ORDERS WHEN APPROPRIATE FOR OT SERVICES.
--- NOTE | 2020-11-20 13:18 | NUR ---
Attempted to call both family members RE: change in status and bedside procedure. Both numbers called were unavailable/phone was disconnected. Will attempt to call later in shift.
[2020-11-20 14:20] LABS: CLARITY TURBID; TOTAL VOLUME 30 mL
--- NOTE | 2020-11-20 14:45 | NUR ---
RAHAT reviewed chart and spoke with nursing and attending physician. Pt remains in Enhanced Isolation due to COVID. Pt is afebrile and requiring optiflow. Pt is on IV abx, IV steroids and IV lasix. Pt was transferred to ICU earlier today. Pt to have a bronchoscopy per pulm. RAHAT updated 5N rehab director occupational therapist, [facility] liaison and left voice message for staff at [facility]. RAHAT is following to assist as needed with discharge planning.
[2020-11-20 15:00] LABS: BF NUCLEATED CELLS 3855 /mm3; BF RBC 4823 /mm3
[2020-11-20 15:24] LABS: BF MACROPHAGE 35 %; BF NEUTROPHILS 61 %
--- NOTE | 2020-11-20 17:46 | NUR ---
TIGREENT THIS MORNING REQURIED INCREASE OF OXYGEN REQUIREMENTS, HAD DIFFICULTY TALKING DUE TO DYSPNEA, APPEARED LABORED AND TACHYPENIC. SHE STATED THAT "I JUST DON'T FEEL RIGHT," DENIED DIZZINESS/LIGHTHEADEDNESS, WAS A/O X4. I UPDATED DR. KIM OF [facility] STATUS. TRANSFER ORDERS WERE PLACED FOR PATIENT TO MOVE TO ICU. PATIEN TRANSFERRED TO ROOM 240 IN ICU WITHOUT COMPLICATION. BELONGINGS ALL SENT WITH PATIENT TO NEW ROOM.
[2020-11-21] VITALS (93 sets, daily range): BP systolic 100–187; BP diastolic 38–89
[2020-11-21 05:22] LABS: HEMATOCRIT 33.6 % (37.0-47.0); MCH 29.4 pg (26.0-34.0); MCHC 32.6 g/dL (28.0-37.0); MCV 90.2 fL (80.0-100.0); RBC 3.73 mil/uL (4.20-5.00); RDW 22.3 % (10.5-14.5)
[2020-11-21 06:01] LABS: ALBUMIN 2.3 g/dL (3.4-5.0); ANION GAP 13 mmol/L (7-16); BUN 40 mg/dL (7-18); CHLORIDE 108 mmol/L (98-107); CO2 28 mmol/L (21-32); CREATININE 0.8 mg/dL (0.6-1.0); GLUCOSE 158 mg/dL (74-106); POTASSIUM 3.1 mmol/L (3.5-5.1); SODIUM 149 mmol/L (136-145); TROPONIN-I <0.06 ng/mL (<0.06)
--- NOTE | 2020-11-21 13:49 | NUR ---
Discussed during am round and with the hospitalist. Cm unable to visit with her rt on BIPAP. Dr varela consult. No anticipated dc over the weekend will cont. following as needed for dc needs. Marc reached out to brothabril Valderrama, no answer, left message requesting a return call.
--- NOTE | 2020-11-21 18:43 | NUR ---
PATIENT WAS MAXED ON BIPAP, WITH CONCERNS OF REINTUBATION. PATIENT HAD POTASSIUM REPLACED TWICE. BIPAP NOW TITRATED TO 70% FIO2. PATIENT IS RESTING COMFORTABLY ON PRECEDEX AT 0.4 MCG/KG/HR
[2020-11-22] VITALS (57 sets, daily range): BP systolic 125–192; BP diastolic 65–88
[2020-11-22 05:12] LABS: ABSOLUTE NEUTROPHILS 6.4 thou/uL (1.4-8.2); BASOPHILS 0.1 % (0.0-2.0); HEMATOCRIT 32.4 % (37.0-47.0); HEMOGLOBIN 10.9 gm/dL (12.0-15.0); MCHC 33.6 g/dL (28.0-37.0); MCV 89.3 fL (80.0-100.0); MONOCYTES 3.2 % (1.0-8.0); PLATELET COUNT 106 thou/uL (150-400); POLYS 91.7 % (36.0-66.0); RBC 3.63 mil/uL (4.20-5.00)
[2020-11-22 05:44] LABS: ALBUMIN 2.3 g/dL (3.4-5.0); CALCIUM 6.8 mg/dL (8.5-10.1); CREATININE 0.8 mg/dL (0.6-1.0); POTASSIUM 3.4 mmol/L (3.5-5.1); TOTAL BILIRUBIN 0.5 mg/dL (0.2-1.0); TOTAL PROTEIN 5.3 g/dL (6.4-8.2)
[2020-11-22 05:52] LABS: HCO3 30.2 mmol/L (22.0-26.0); PCO2 46.9 mmHg (35.0-45.0); PO2 71.2 mmHg (80.0-100.0); pH 7.426 (7.360-7.450); sO2 94.6 % (92.0-98.0)
--- NOTE | 2020-11-22 18:53 | NUR ---
PATIENT REMAINED IN AVAPS AT 100% FIO2 FOR DURATION OF AM SHIFT. FAMILY/GUARDIANS MADE PATIENT DNR/DNI TO HONOR PATIENT'S WISHES OF NOT WANTING TO BE INTUBATED AGAIN. WHEN PATIENT DECOMPENSATES, THEN COMFORT MEASURES CAN BE TAKEN. PATIENT IS A BRAIN DONOR FOR SCIENCE, SPECIFIC INSTRUCTIONS TO BE BROUGHT IN BY FAMILY. POTASSIUM REPLACED TWICE TODAY, LATEST K+ 4.0.
--- NOTE | 2020-11-22 23:43 | NUR ---
THIS RN CALLED DR RIDLEY, PT FAMILY AT BEDSIDE, DECSION TO WITHDRAW CARE/ COMFORT CARE. STOP BIPAP. [facility] INVOLVED IN THIS DECSION. COMFORT CARE ORDER RECIVED AND MORPHINE.
[2020-11-23 00:01] VITALS: BP 136/73
[2020-11-23 00:21] VITALS: BP 99/56
[2020-11-23 01:00] VITALS: BP 94/52
[2020-11-23 02:00] VITALS: BP 77/44
[2020-11-23 02:40] VITALS: BP 65/33
[2020-11-23 03:00] VITALS: BP 61/33
--- NOTE | 2020-11-23 07:39 | NUR ---
11/22/205 TO 2202 PATIENT'S BROTHER AND XEONG-MC-BCM WERE AT BEDSIDE TALKING WITH PATIENT. PATIENT WANTED SNACKS, JELLO AND ICE CREAM. FAMILY HELPED HER EAT, BUT PT. BECAME VERY SOA AND WANTED BI-BPAP BACK ON. A FEW MINIETS LATER PATIENT WANTED TO RESUME EATIING. RT CAME TO HELP PROVIDE OXYGEN SUPPORT WITH HIGH MILEY NC AND NRB MASK TO MAKE IT EASIER FOR PT. TO EAT WITH HELP. AFTER EATING PATIENT SAID SHE WAS DONE. FAMILY ASKED HER WHAT EXACTLY DID SHE MEAN BY THIS AND THE PATIENT MADE IT CLEAR TO STOP CARE AND SHE SAID NO MORE OXYGEN. THIS RN CALLED DR. RIDLEY AND COMFORT CARE WAS ORDERED. MORPHINE WAS PROVIDED FOR AIR HUNGER, FAMILY STAYED AT BEDSIDE UNTIL PT 11/23/20 AT 0351. POST MORTUM CARE PROVIDED SEE PACKED FOR NOTES. ALL PROVIDERS/CONSULTS WERE NOTIFIED. PATIENT IS DONATING HER BRAIN TO SCIENCE, HER HEAD WAS PACKED IN ICE POST MORTUM, WITH FVIE ICE PACKES, ONE BEHIND HEAD, ONE TO FACE, ONE ON LEFT AND RIGHT, ALONG WITH ONE OCE PACK ON TOP OF HEAD. SECURITY NOTIFIED AND EMIL JOHNSON RN ARE AWARE OF NEED TO RE-PACK ICE PRIOR TO TRANSPORT FROM [facility].
--- NOTE | 2020-11-24 18:06 | PATH ---
[facility] [address] [place] [address] PATHOLOGY RPT PROCEDURE Name: JAVED GERARDO Room #: 240-P DIS IN M.R.#: [id number] Admission: 11/17/20 Date of : 67 Discharge: 11/23/20 Report #: [id number] Path Case #: [id number] Note [facility] Accession Number: [id number] TESTS RESULT FLAG UNITS REF RANGE LAB Clinician Provided Cytology Information No. of containers..01 Other (Miscellaneous) Source: BAL RLL DIAGNOSIS: BAL RLL NEGATIVE FOR MALIGNANT EPITHELIAL CELLS. NORMAL BRONCHIAL CELLS AND MACROPHAGES ARE PRESENT. PULMONARY MACROPHAGES (DUST CELLS) ARE PRESENT. Signed out by: 02 Azalea Mcadams MD, Pathologist NPI- [id number] Performed by: Jennifer Amaya, Web Engineer ([facility]) Gross description: 01 5ML, CLOUDY PINK, 1 TP /LCS 11/21/2020 1905 Local FLAG LEGEND: L-Low Normal,H-High Normal,LL-Alert Low,HH-Alert High <-Panic Low,>-Panic High,A-Abnormal,AA-Critical Abnormal Performed at: [address] [place] [address] Jesús Millard MD, [address] [address] Azalea Mcadams MD, Specimen Comment: A courtesy copy of this report has been sent to [phone] Specimen Comment: [phone] Specimen Comment: Report sent to / DR JORDAN Performed at: [address], [place], [place] [id number] MD Jesús Millard MD Phone: [phone]
== END 2020-11-23 03:51 | DRG 177 ==
LOC: 3N 11:01 → 3W 13:08 → ICU 11-20 11:40
PROVIDERS: Hospitalist; Pediatrics; Specialist; ADMIT Internal Medicine; ATTEND Internal Medicine
DX: U07.1 COVID-19 (principal); J96.01 Acute respiratory failure with hypoxia; I50.33 Acute on chronic diastolic (congestive) heart failure; E43 Unspecified severe protein-calorie malnutrition; J12.82 Pneumonia due to coronavirus disease 2019; N39.0 Urinary tract infection, site not specified; E87.0 Hyperosmolality and hypernatremia; I13.0 Hypertensive heart and chronic kidney disease with heart failure and stage 1 through stage 4 chronic kidney disease, or unspecified chronic kidney disease; D64.9 Anemia, unspecified; D69.6 Thrombocytopenia, unspecified; F03.90 Unspecified dementia, unspecified severity, without behavioral disturbance, psychotic disturbance, mood disturbance, and anxiety; E03.9 Hypothyroidism, unspecified; F31.9 Bipolar disorder, unspecified; E11.22 Type 2 diabetes mellitus with diabetic chronic kidney disease; N18.9 Chronic kidney disease, unspecified; E66.01 Morbid (severe) obesity due to excess calories; Z68.30 Body mass index [BMI] 30.0-30.9, adult; Z88.5 Allergy status to narcotic agent
CPT/HCPCS: 10078; 10879